=== PATIENT | female | born 1995 | race Caucasian/White ===

== ENCOUNTER 2017-08-13 17:04 | Emergency (ER) | payer MEDICAID ==
[~2017-08-13] VITALS: Ht 149.9 cm; Wt 73.0 kg
[~2017-08-13 17:04] MED LIST: ARIP5TAB4 PO; PANT-47 PO; VENL150C2 PO; VENL75CA55 PO
[2017-08-13 17:42] LABS: BASOPHILS % (AUTO) 0.1 % (0-1); EOSINOPHILS # (AUTO) 0.1 X10'3 (0-0.9); EOSINOPHILS % (AUTO) 1.2 % (0-6); HEMATOCRIT 41.8 % (35.0-45.0); HEMOGLOBIN 14.6 g/dl (12.0-16.0); LYMPHOCYTES # (AUTO) 2.5 X10'3 (1.1-4.8); LYMPHOCYTES % (AUTO) 20.8 % (21-51); MEAN CORPUSCULAR HEMOGLOBIN 29.5 PG (27.0-31.0); MEAN CORPUSCULAR HGB CONC 35.1 % (33.0-36.5); MEAN CORPUSCULAR VOLUME 84.3 FL (78-98); MEAN PLATELET VOLUME 7.4 FL (7.4-10.4); MONOCYTES # (AUTO) 0.4 X10'3 (0-0.9); MONOCYTES % (AUTO) 3.7 % (2-12); NEUTROPHILS # (AUTO) 8.8 X10'3 (1.8-7.7); NEUTROPHILS % (AUTO) 74.2 % (42-75); PLATELET COUNT 322 X10'3 (140-440); RED BLOOD COUNT 4.96 X10'6 (4.20-5.60); RED CELL DISTRIBUTION WIDTH 14.1 % (11.5-14.5); WHITE BLOOD COUNT 11.9 X10'3 (4.5-11.0)
[2017-08-13 17:48] LABS: URINE HCG NEGATIVE (NEG)
[2017-08-13 17:51] LABS: CLARITY,URINE CLOUDY (Clear); COLOR,URINE YELLOW (Yellow); GLUCOSE, URINE NEGATIVE (Neg); KETONES,URINE NEGATIVE (Neg); LEUKOCYTE ESTERASE ,URINE SMALL (Neg); NITRITES, URINE NEGATIVE (Neg); OCCULT BLOOD,URINE NEGATIVE (Neg); PROTEIN,URINE NEGATIVE (Neg)
[2017-08-13 17:53] LABS: UA COLLECTION TYPE CLN CATCH MIDSTREAM
[2017-08-13 18:03] LABS: BACTERIA,URINE 1+ /HPF (Neg); CAL OXALATE CRYSTALS FEW /HPF (NEGATIVE); MUCUS STRANDS MANY /LPF (Neg); RBC,URINE 0-2 /HPF (0-2); SQUAMOUS EPITHELIAL CELL,UR MANY /LPF (FEW); URINE AMPHETAMINE SCREEN NEGATIVE (Neg); URINE BARBITUATE SCREEN NEGATIVE (Neg); URINE BENZODIAZEPINES SCREEN NEGATIVE (Neg); URINE CANNABINOID SCREEN NEGATIVE (Neg); URINE COCAINE SCREEN NEGATIVE (Neg); URINE METHADONE SCREEN NEGATIVE (Neg); URINE OPIATE SCREEN NEGATIVE (Neg); URINE PHENCYCLIDINE SCREEN NEGATIVE (Neg); WBC,URINE 0-4 /HPF (0-4)
[2017-08-13 18:09] LABS: ALANINE AMINOTRANSFERASE 26 U/L (12-78); ALBUMIN 3.9 G/DL (3.4-5.0); ALKALINE PHOSPHATASE 89 IU/L (20-180); ANION GAP 13 (8-16); ASPARTATE AMINO TRANSFERASE 17 U/L (10-37); BILIRUBIN,TOTAL 0.4 MG/DL (0.1-1.0); BLOOD UREA NITROGEN 5 MG/DL (7-18); BUN/CREATININE RATIO 5.6 (6.6-38.0); CALCIUM 8.8 MG/DL (8.5-10.1); CHLORIDE 107 MMOL/L (99-107); CREATININE 0.89 MG/DL (0.40-0.90); ETHANOL < 0.010 GM/DL (0.0-0.010); GLUCOSE 112 MG/DL (70-104); POTASSIUM 3.7 MMOL/L (3.5-5.1); SODIUM 144 MMOL/L (135-145); TOTAL CARBON DIOXIDE 24.1 MMOL/L (24-32); TOTAL PROTEIN 7.9 G/DL (6.4-8.2); eGFR 81 ML/MIN
[2017-08-14] MEDS ORDERED: GABA-534 PO (11:18)
[2017-08-14] MEDS ORDERED: TEN1T CORPAK (11:43)
[2017-08-14] MEDS ORDERED: ARIP10TA15 PO (11:43)
[2017-08-14 13:35] VITALS: BP 104/64
== END 2017-08-14 13:54 ==
LOC: ER 17:04
DX: F32.9 Major depressive disorder, single episode, unspecified (principal); R45.851 Suicidal ideations; J45.909 Unspecified asthma, uncomplicated; Z88.6 Allergy status to analgesic agent; Z79.899 Other long term (current) drug therapy
CPT/HCPCS: 36415; 80053; 80305; 80320; 81001; 81025; 84443; 85025; 99285

== ENCOUNTER 2017-11-02 21:02 | Emergency (ER) | payer MEDICAID ==
[~2017-11-02] VITALS: Ht 175.3 cm; Wt 72.2 kg
[~2017-11-02 21:02] MED LIST changes: +ARIP10TA15 PO; -ARIP5TAB4 PO; +GABA-534 PO; -PANT-47 PO; +TEN1T CORPAK
[2017-11-02 21:07] VITALS: BP 138/74
[2017-11-02 21:47] LABS: COLOR,URINE YELLOW (Yellow); GLUCOSE, URINE NEGATIVE (Neg); KETONES,URINE NEGATIVE (Neg); LEUKOCYTE ESTERASE ,URINE MODERATE (Neg); NITRITES, URINE NEGATIVE (Neg); OCCULT BLOOD,URINE TRACE-LYSED (Neg); PH,URINE 6.5 (4.8-8.0); PROTEIN,URINE NEGATIVE (Neg); UROBILINOGEN,URINE 0.2 E.U/dL (0.2-1.0)
[2017-11-02 21:48] LABS: URINE HCG NEGATIVE (NEG)
[2017-11-02 21:54] LABS: URINE AMPHETAMINE SCREEN NEGATIVE (Neg); URINE BARBITUATE SCREEN NEGATIVE (Neg); URINE BENZODIAZEPINES SCREEN NEGATIVE (Neg); URINE CANNABINOID SCREEN NEGATIVE (Neg); URINE COCAINE SCREEN NEGATIVE (Neg); URINE METHADONE SCREEN NEGATIVE (Neg); URINE OPIATE SCREEN NEGATIVE (Neg); URINE PHENCYCLIDINE SCREEN NEGATIVE (Neg)
[2017-11-02 21:56] LABS: UA COLLECTION TYPE CLN CATCH MIDSTREAM
[2017-11-02 21:57] LABS: BACTERIA,URINE FEW /HPF (Neg); CLARITY,URINE SLIGHTLY CLOUDY (Clear); RBC,URINE 0-2 /HPF (0-2); SQUAMOUS EPITHELIAL CELL,UR FEW /LPF (FEW); WBC,URINE 20-30 /HPF (0-4)
[2017-11-02 21:58] LABS: YEAST FEW /HPF (NEGATIVE)
[2017-11-02] MEDS ORDERED: LORazepam 1 MG tablet PO ONE (23:20)
[2017-11-02] MEDS ORDERED: acetaminophen 325mg tablet PO ONE (23:20)
== END 2017-11-03 00:17 | disposition home or self-care (01) ==
LOC: ER 21:03
DX: F41.9 Anxiety disorder, unspecified (principal); Z88.6 Allergy status to analgesic agent
CPT/HCPCS: 80305; 81001; 81025; 87088; 93005; 99285

== ENCOUNTER 2017-11-07 01:42 | Emergency (ER) | payer MEDICAID ==
[~2017-11-07] VITALS: Ht 157.5 cm; Wt 76.2 kg
[2017-11-07 01:56] VITALS: BP 140/96
== END 2017-11-07 02:25 | disposition home or self-care (01) ==
LOC: ER 01:43
DX: F41.9 Anxiety disorder, unspecified (principal); J45.909 Unspecified asthma, uncomplicated; Z88.6 Allergy status to analgesic agent; Z79.899 Other long term (current) drug therapy
CPT/HCPCS: 99284

== ENCOUNTER 2017-11-25 21:55 | Emergency (ER) | payer MEDICAID ==
[~2017-11-25] VITALS: Ht 149.9 cm; Wt 76.2 kg
[2017-11-25 22:56] LABS: BASOPHILS # (AUTO) 0.1 X10'3 (0-0.2); BASOPHILS % (AUTO) 0.5 % (0-1); EOSINOPHILS # (AUTO) 0.1 X10'3 (0-0.9); HEMATOCRIT 42.6 % (35.0-45.0); HEMOGLOBIN 14.7 g/dl (12.0-16.0); LYMPHOCYTES # (AUTO) 4.1 X10'3 (1.1-4.8); LYMPHOCYTES % (AUTO) 36.4 % (21-51); MEAN CORPUSCULAR HEMOGLOBIN 29.4 PG (27.0-31.0); MEAN CORPUSCULAR HGB CONC 34.6 % (33.0-36.5); MONOCYTES # (AUTO) 0.6 X10'3 (0-0.9); MONOCYTES % (AUTO) 5.6 % (2-12); NEUTROPHILS # (AUTO) 6.4 X10'3 (1.8-7.7); NEUTROPHILS % (AUTO) 56.5 % (42-75); PLATELET COUNT 323 X10'3 (140-440); RED BLOOD COUNT 5.01 X10'6 (4.20-5.60); RED CELL DISTRIBUTION WIDTH 14.6 % (11.5-14.5); WHITE BLOOD COUNT 11.2 X10'3 (4.5-11.0)
[2017-11-25 23:02] LABS: INR 0.9 INR; PROTHROMBIN TIME 9.4 SECONDS (9.0-12.0)
[2017-11-25 23:08] LABS: ALANINE AMINOTRANSFERASE 35 U/L (12-78); ALBUMIN 3.6 G/DL (3.4-5.0); ALBUMIN/GLOBULIN RATIO 0.9 (1.1-1.5); ALKALINE PHOSPHATASE 101 IU/L (46-116); AMYLASE 49 U/L (25-115); ANION GAP 12 (8-16); ASPARTATE AMINO TRANSFERASE 16 U/L (10-37); BILIRUBIN,TOTAL 0.5 MG/DL (0.1-1.0); BLOOD UREA NITROGEN 3 MG/DL (7-18); BUN/CREATININE RATIO 3.6 (6.6-38.0); CALCIUM 8.8 MG/DL (8.5-10.1); CHLORIDE 109 MMOL/L (99-107); CREATININE 0.84 MG/DL (0.40-0.90); GLUCOSE 153 MG/DL (70-104); LIPASE 163 U/L (73-393); POTASSIUM 3.6 MMOL/L (3.5-5.1); SODIUM 143 MMOL/L (135-145); TOTAL CARBON DIOXIDE 22.5 MMOL/L (24-32); TOTAL PROTEIN 7.6 G/DL (6.4-8.2); eGFR 86 ML/MIN
[2017-11-25 23:10] LABS: CLARITY,URINE CLEAR (Clear); COLOR,URINE YELLOW (Yellow); GLUCOSE, URINE NEGATIVE (Neg); KETONES,URINE NEGATIVE (Neg); LEUKOCYTE ESTERASE ,URINE TRACE (Neg); NITRITES, URINE NEGATIVE (Neg); OCCULT BLOOD,URINE NEGATIVE (Neg); PROTEIN,URINE NEGATIVE (Neg)
[2017-11-25 23:12] LABS: UA COLLECTION TYPE CLN CATCH MIDSTREAM; URINE HCG NEGATIVE (NEG)
[2017-11-25 23:15] LABS: RBC,URINE NONE SEEN /HPF (0-2); WBC,URINE 0-4 /HPF (0-4)
[2017-11-25 23:16] LABS: BACTERIA,URINE NONE SEEN /HPF (Neg); SQUAMOUS EPITHELIAL CELL,UR NONE SEEN /LPF (FEW)
[2017-11-25] MEDS ORDERED: morphine 4 MG/ML inj SYRINge IM ONE (23:30)
[2017-11-25] MEDS ORDERED: HYDROcodone/acetaminophen 5mg/325mg tablet PO ONE (23:30)
[2017-11-25] MEDS ORDERED: ondansetron 4mg rapidly disintigrating tab PO ONE (23:30)
[2017-11-26 00:08] VITALS: BP 119/45
== END 2017-11-26 00:17 | disposition home or self-care (01) ==
LOC: ER 21:56
DX: R10.11 Right upper quadrant pain (principal); J45.909 Unspecified asthma, uncomplicated; Z88.6 Allergy status to analgesic agent; Z79.899 Other long term (current) drug therapy
CPT/HCPCS: 36415; 80053; 81001; 81025; 82150; 83690; 85025; 85610; 87088; 96372; 99284; J2270

== ENCOUNTER 2017-12-01 19:44 | Emergency (ER) | payer MEDICAID ==
[~2017-12-01] VITALS: Ht 149.9 cm; Wt 77.0 kg
[2017-12-01] MEDS ORDERED: dicyclomine 10 MG capsule PO ONE (21:45)
[2017-12-01] MEDS ORDERED: famotidine/PF 10 mg/ml inj IV ONE (21:45)
[2017-12-01] MEDS ORDERED: morphine 4 MG/ML inj SYRINge IV ONE (21:45)
[2017-12-01] MEDS ORDERED: normal saline 1000ML IV soln IVB ONE (21:45)
[2017-12-01] MEDS ORDERED: ondansetron/PF 4mg/2ml inj IV ONE (21:45)
[2017-12-01 22:03] LABS: CLARITY,URINE CLEAR (Clear); COLOR,URINE STRAW (Yellow); GLUCOSE, URINE 100 mg/dl (Neg); KETONES,URINE NEGATIVE (Neg); LEUKOCYTE ESTERASE ,URINE SMALL (Neg); NITRITES, URINE NEGATIVE (Neg); OCCULT BLOOD,URINE NEGATIVE (Neg); PROTEIN,URINE NEGATIVE (Neg); UA COLLECTION TYPE CLN CATCH MIDSTREAM; URINE HCG NEGATIVE (NEG); UROBILINOGEN,URINE 0.2 E.U/dL (0.2-1.0)
[2017-12-01 22:12] LABS: EOSINOPHILS # (AUTO) 0.1 X10'3 (0-0.9)
[2017-12-01] MEDS ORDERED: iohexol 300mg/ml 100ml inj. ONE (22:14)
[2017-12-01 22:18] LABS: TOTAL CARBON DIOXIDE 25.3 MMOL/L (24-32)
[2017-12-01 22:26] LABS: BACTERIA,URINE 1+ /HPF (Neg); RBC,URINE 0-2 /HPF (0-2); SQUAMOUS EPITHELIAL CELL,UR FEW /LPF (FEW); WBC,URINE 0-4 /HPF (0-4)
[2017-12-01 22:30] LABS: BASOPHILS % (AUTO) 0.3 % (0-1); EOSINOPHILS % (AUTO) 0.8 % (0-6); HEMATOCRIT 43.9 % (35.0-45.0); HEMOGLOBIN 15.4 g/dl (12.0-16.0); LYMPHOCYTES # (AUTO) 3.2 X10'3 (1.1-4.8); MEAN CORPUSCULAR HEMOGLOBIN 29.8 PG (27.0-31.0); MEAN CORPUSCULAR HGB CONC 35.2 % (33.0-36.5); MEAN CORPUSCULAR VOLUME 84.9 FL (78-98); MEAN PLATELET VOLUME 7.9 FL (7.4-10.4); MONOCYTES # (AUTO) 0.5 X10'3 (0-0.9); MONOCYTES % (AUTO) 5.2 % (2-12); NEUTROPHILS # (AUTO) 5.6 X10'3 (1.8-7.7); NEUTROPHILS % (AUTO) 59.7 % (42-75); PLATELET COUNT 310 X10'3 (140-440); RED BLOOD COUNT 5.17 X10'6 (4.20-5.60); RED CELL DISTRIBUTION WIDTH 14.3 % (11.5-14.5); WHITE BLOOD COUNT 9.4 X10'3 (4.5-11.0)
[2017-12-01 22:51] LABS: ALANINE AMINOTRANSFERASE 32 U/L (12-78); ALBUMIN 3.8 G/DL (3.4-5.0); ALBUMIN/GLOBULIN RATIO 0.9 (1.1-1.5); ALKALINE PHOSPHATASE 118 IU/L (46-116); ANION GAP 10 (8-16); ASPARTATE AMINO TRANSFERASE 18 U/L (10-37); BILIRUBIN,TOTAL 0.4 MG/DL (0.1-1.0); BLOOD UREA NITROGEN 4 MG/DL (7-18); CALCIUM 9.1 MG/DL (8.5-10.1); CHLORIDE 109 MMOL/L (99-107); CREATINE KINASE 151 U/L (26-192); GLUCOSE 158 MG/DL (70-104); LIPASE 190 U/L (73-393); MAGNESIUM 2.4 MG/DL (1.5-2.4); SODIUM 144 MMOL/L (135-145); TOTAL PROTEIN 8.1 G/DL (6.4-8.2); eGFR > 90 ML/MIN
[2017-12-01 23:23] LABS: CHOL/HDL RATIO 7.5 (0.00-4.99); CHOLESTEROL 172 MG/DL (0-200); HDL CHOLESTEROL 23 MG/DL (35-60); LDL CHOLESTEROL 117 MG/DL (50-100); TRIGLYCERIDES 502 MG/DL (20-135)
[2017-12-02] MEDS ORDERED: HYDR-569 PO (00:56)
[2017-12-02 01:16] VITALS: BP 127/87
== END 2017-12-02 01:19 | disposition home or self-care (01) ==
LOC: ER 19:45
DX: E78.1 Pure hyperglyceridemia (principal); R10.13 Epigastric pain; J45.909 Unspecified asthma, uncomplicated; Z88.6 Allergy status to analgesic agent; Z79.899 Other long term (current) drug therapy
CPT/HCPCS: 36415; 74177; 80053; 80061; 81001; 81025; 82140; 82550; 83690; 83735; 84484; 85025; 87088; 96374; 96375; 99285; J2270; J2405; J3490; J7030; Q9967

== ENCOUNTER 2017-12-03 01:40 | Emergency (ER) | payer MEDICAID ==
[~2017-12-03 01:40] MED LIST changes: +HYDR-569 PO
[2017-12-03] MEDS ORDERED: ondansetron/PF 4mg/2ml inj IV ONE (03:40)
[2017-12-03] MEDS ORDERED: famotidine/PF 10 mg/ml inj IV ONE (03:40)
[2017-12-03] MEDS ORDERED: morphine 4 MG/ML inj SYRINge IV ONE (03:40)
[2017-12-03 04:44] VITALS: BP 129/77
== END 2017-12-03 05:05 | disposition home or self-care (01) ==
LOC: ER 01:41
DX: R10.13 Epigastric pain (principal); J45.909 Unspecified asthma, uncomplicated; Z88.6 Allergy status to analgesic agent; Z79.899 Other long term (current) drug therapy
CPT/HCPCS: 96374; 96375; 99284; J2270; J2405; J3490

== ENCOUNTER 2017-12-11 22:26 | Emergency (ER) | payer MEDICAID ==
[~2017-12-11] VITALS: Ht 149.9 cm; Wt 75.0 kg
[2017-12-11 22:43] VITALS: BP 123/82
[2017-12-11] MEDS ORDERED: dicyclomine 10mg/ml 2ml ampule IM ONE (23:50)
[2017-12-11] MEDS ORDERED: DICY10CA88 PO (23:52)
== END 2017-12-12 00:14 | disposition home or self-care (01) ==
LOC: ER 22:27
DX: R10.13 Epigastric pain (principal); J45.909 Unspecified asthma, uncomplicated; Z88.6 Allergy status to analgesic agent; Z79.899 Other long term (current) drug therapy
CPT/HCPCS: 96372; 99283; J0500

== ENCOUNTER 2017-12-16 19:33 | Emergency (ER) | payer MEDICAID ==
[~2017-12-16] VITALS: Ht 149.9 cm; Wt 73.8 kg
[~2017-12-16 19:33] MED LIST changes: +DICY10CA88 PO
[2017-12-16 19:43] VITALS: BP 133/89
== END 2017-12-16 21:57 | disposition left against medical advice (07) ==
LOC: ER 19:33
DX: R10.9 Unspecified abdominal pain (principal); Z53.21 Procedure and treatment not carried out due to patient leaving prior to being seen by health care provider

== ENCOUNTER 2017-12-16 22:03 | Emergency (ER) | payer MEDICAID ==
[~2017-12-16] VITALS: Ht 149.9 cm; Wt 77.7 kg
[2017-12-16 22:16] VITALS: BP 135/88
[2017-12-17] MEDS ORDERED: normal saline 1000ML IV soln IVB ONE (00:05)
[2017-12-17 00:34] LABS: BASOPHILS % (AUTO) 0.3 % (0-1); EOSINOPHILS # (AUTO) 0.3 X10'3 (0-0.9); EOSINOPHILS % (AUTO) 2.5 % (0-6); HEMATOCRIT 40.7 % (35.0-45.0); HEMOGLOBIN 13.5 g/dl (12.0-16.0); LYMPHOCYTES % (AUTO) 25.6 % (21-51); MEAN CORPUSCULAR HEMOGLOBIN 28.4 PG (27.0-31.0); MEAN PLATELET VOLUME 7.8 FL (7.4-10.4); MONOCYTES # (AUTO) 0.3 X10'3 (0-0.9); MONOCYTES % (AUTO) 2.9 % (2-12); NEUTROPHILS % (AUTO) 68.7 % (42-75); PLATELET COUNT 327 X10'3 (140-440); RED BLOOD COUNT 4.74 X10'6 (4.20-5.60); RED CELL DISTRIBUTION WIDTH 13.6 % (11.5-14.5); WHITE BLOOD COUNT 11.6 X10'3 (4.5-11.0)
[2017-12-17 00:42] LABS: ALANINE AMINOTRANSFERASE 21 U/L (12-78); ALBUMIN 3.5 G/DL (3.4-5.0); ALBUMIN/GLOBULIN RATIO 0.9 (1.1-1.5); ALKALINE PHOSPHATASE 90 IU/L (46-116); ANION GAP 9 (8-16); ASPARTATE AMINO TRANSFERASE 10 U/L (10-37); BILIRUBIN,TOTAL 0.5 MG/DL (0.1-1.0); BLOOD UREA NITROGEN 8 MG/DL (7-18); BUN/CREATININE RATIO 9.1 (6.6-38.0); CALCIUM 9.3 MG/DL (8.5-10.1); CHLORIDE 108 MMOL/L (99-107); CREATININE 0.88 MG/DL (0.40-0.90); GLUCOSE 112 MG/DL (70-104); LIPASE 174 U/L (73-393); POTASSIUM 3.6 MMOL/L (3.5-5.1); SODIUM 145 MMOL/L (135-145); TOTAL CARBON DIOXIDE 27.6 MMOL/L (24-32); TOTAL PROTEIN 7.6 G/DL (6.4-8.2); eGFR 81 ML/MIN
[2017-12-17 01:19] LABS: CLARITY,URINE CLEAR (Clear); COLOR,URINE STRAW (Yellow); GLUCOSE, URINE NEGATIVE (Neg); KETONES,URINE NEGATIVE (Neg); LEUKOCYTE ESTERASE ,URINE NEGATIVE (Neg); NITRITES, URINE NEGATIVE (Neg); OCCULT BLOOD,URINE NEGATIVE (Neg); PROTEIN,URINE NEGATIVE (Neg); UROBILINOGEN,URINE 0.2 E.U/dL (0.2-1.0)
[2017-12-17 01:20] LABS: UA COLLECTION TYPE CLN CATCH MIDSTREAM
[2017-12-17] MEDS ORDERED: acetaminophen 325mg tablet PO ONE (01:35)
== END 2017-12-17 01:51 | disposition home or self-care (01) ==
LOC: ER 22:03
DX: G89.29 Other chronic pain (principal); R10.13 Epigastric pain; J45.909 Unspecified asthma, uncomplicated; Z88.6 Allergy status to analgesic agent; Z79.899 Other long term (current) drug therapy
CPT/HCPCS: 36415; 80053; 81003; 83690; 85025; 99284; J7030

== ENCOUNTER 2017-12-18 19:41 | Emergency (ER) | payer MEDICAID ==
[~2017-12-18] VITALS: Ht 502.6 cm; Wt 76.0 kg
[2017-12-18 19:44] VITALS: BP 129/98
[2017-12-18] MEDS ORDERED: benztropine 1mg tablet PO ONE (20:45)
[2017-12-18] MEDS ORDERED: LORazepam 0.5 MG tablet PO PRN (20:45)
== END 2017-12-18 21:13 | disposition home or self-care (01) ==
LOC: ER 19:41
DX: G25.3 Myoclonus (principal); J45.909 Unspecified asthma, uncomplicated; G89.29 Other chronic pain; Z88.8 Allergy status to other drugs, medicaments and biological substances; Z79.899 Other long term (current) drug therapy
CPT/HCPCS: 99283

== ENCOUNTER 2018-02-21 19:44 | Emergency (ER) | payer MEDICAID ==
[~2018-02-21] VITALS: Ht 149.9 cm; Wt 72.7 kg
[~2018-02-21 19:44] MED LIST changes: +BISA-155 PO; -DICY10CA88 PO
[2018-02-21 19:54] VITALS: BP 125/87
[2018-02-21 20:21] LABS: CLARITY,URINE CLEAR (Clear); COLOR,URINE YELLOW (Yellow); GLUCOSE, URINE NEGATIVE (Neg); KETONES,URINE NEGATIVE (Neg); LEUKOCYTE ESTERASE ,URINE TRACE (Neg); NITRITES, URINE NEGATIVE (Neg); OCCULT BLOOD,URINE NEGATIVE (Neg); PROTEIN,URINE NEGATIVE (Neg); UROBILINOGEN,URINE 0.2 E.U/dL (0.2-1.0)
[2018-02-21 20:31] LABS: UA COLLECTION TYPE CLN CATCH MIDSTREAM
[2018-02-21 20:32] LABS: BACTERIA,URINE FEW /HPF (Neg); RBC,URINE NONE SEEN /HPF (0-2); SQUAMOUS EPITHELIAL CELL,UR FEW /LPF (FEW); WBC,URINE 0-4 /HPF (0-4)
[2018-02-21] MEDS ORDERED: mag hydrox/Alum hydrox/simeth 30ml oral suspension PO ONE (21:10)
[2018-02-21] MEDS ORDERED: LIDOcaine Viscous 15ml cup PO ONE (21:10)
[2018-02-21] MEDS ORDERED: dicyclomine 10mg/ml 2ml ampule IM ONE (21:10)
== END 2018-02-21 21:59 | disposition home or self-care (01) ==
LOC: ER 19:45
DX: R10.9 Unspecified abdominal pain (principal); K59.00 Constipation, unspecified; J45.909 Unspecified asthma, uncomplicated; F29 Unspecified psychosis not due to a substance or known physiological condition; F41.9 Anxiety disorder, unspecified; F32.9 Major depressive disorder, single episode, unspecified; Z88.6 Allergy status to analgesic agent; Z88.8 Allergy status to other drugs, medicaments and biological substances
CPT/HCPCS: 81001; 87077; 87088; 87186; 96372; 99284; J0500

== ENCOUNTER 2018-02-26 21:48 | Emergency (ER) | payer MEDICAID ==
[~2018-02-26] VITALS: Ht 149.9 cm; Wt 72.7 kg
[2018-02-26] MEDS ORDERED: mag hydrox/Alum hydrox/simeth 30ml oral suspension PO ONE (23:15)
[2018-02-26] MEDS ORDERED: LIDOcaine Viscous 15ml cup MM PRN (23:15)
[2018-02-26] MEDS ORDERED: dicyclomine 10mg/ml 2ml ampule IM ONE (23:15)
[2018-02-27 00:56] VITALS: BP 122/71
== END 2018-02-27 00:25 | disposition home or self-care (01) ==
LOC: ER 21:49
DX: R10.9 Unspecified abdominal pain (principal); J45.909 Unspecified asthma, uncomplicated; G89.29 Other chronic pain; Z88.6 Allergy status to analgesic agent; Z79.899 Other long term (current) drug therapy
CPT/HCPCS: 96372; 99283; J0500

== ENCOUNTER 2018-03-01 19:54 | Emergency (ER) | payer MEDICAID ==
[~2018-03-01] VITALS: Ht 149.9 cm; Wt 72.7 kg
[2018-03-01 22:30] VITALS: BP 118/79
== END 2018-03-01 22:33 | disposition home or self-care (01) ==
LOC: ER 19:54
DX: M79.621 Pain in right upper arm (principal); J45.909 Unspecified asthma, uncomplicated; G89.29 Other chronic pain; Z88.6 Allergy status to analgesic agent; Z79.899 Other long term (current) drug therapy
CPT/HCPCS: 99281

== ENCOUNTER 2018-03-04 21:30 | Emergency (ER) | payer MEDICAID ==
[~2018-03-04] VITALS: Ht 149.9 cm; Wt 79.3 kg
[2018-03-05 00:40] VITALS: BP 121/72
== END 2018-03-05 00:44 | disposition home or self-care (01) ==
LOC: ER 21:30
DX: R10.9 Unspecified abdominal pain (principal); J45.909 Unspecified asthma, uncomplicated; G89.29 Other chronic pain; Z88.6 Allergy status to analgesic agent; Z79.899 Other long term (current) drug therapy
CPT/HCPCS: 99284

== ENCOUNTER → 2018-03-13 | Emergency (ER) | payer MEDICAID ==
[~2018-03-13] VITALS: Ht 149.9 cm; Wt 72.0 kg
[2018-03-13 17:14] VITALS: BP 110/74
== END | disposition home or self-care (01) ==
LOC: ER 16:11
DX: M25.531 Pain in right wrist (principal); J45.909 Unspecified asthma, uncomplicated; G89.29 Other chronic pain; Z88.6 Allergy status to analgesic agent; Z79.899 Other long term (current) drug therapy; W22.01XA Walked into wall, initial encounter; Y93.89 Activity, other specified; Y92.89 Other specified places as the place of occurrence of the external cause; Y99.9 Unspecified external cause status
CPT/HCPCS: 73110; 73130; 99284

== ENCOUNTER 2018-05-05 20:55 | Emergency (ER) | payer MEDICAID ==
[~2018-05-05] VITALS: Ht 149.9 cm; Wt 81.7 kg
[~2018-05-05 20:55] MED LIST changes: +HYDR-4383 PO; -HYDR-569 PO
[2018-05-05 21:03] VITALS: BP 125/77
[2018-05-05 21:17] LABS: URINE HCG NEGATIVE (NEG)
[2018-05-05 21:22] LABS: CLARITY,URINE CLEAR (Clear); COLOR,URINE YELLOW (Yellow); GLUCOSE, URINE NEGATIVE (Neg); KETONES,URINE NEGATIVE (Neg); LEUKOCYTE ESTERASE ,URINE TRACE (Neg); NITRITES, URINE NEGATIVE (Neg); OCCULT BLOOD,URINE NEGATIVE (Neg); PH,URINE 6.5 (4.8-8.0); PROTEIN,URINE NEGATIVE (Neg); UROBILINOGEN,URINE 0.2 E.U/dL (0.2-1.0)
[2018-05-05 21:28] LABS: UA COLLECTION TYPE CLN CATCH MIDSTREAM
[2018-05-05 21:30] LABS: BACTERIA,URINE FEW /HPF (Neg); RBC,URINE NONE SEEN /HPF (0-2); SQUAMOUS EPITHELIAL CELL,UR MODERATE /LPF (FEW); WBC,URINE 0-4 /HPF (0-4)
== END 2018-05-05 21:44 | disposition home or self-care (01) ==
LOC: ER 20:56
DX: G89.29 Other chronic pain (principal); R10.10 Upper abdominal pain, unspecified; R10.84 Generalized abdominal pain; J45.909 Unspecified asthma, uncomplicated; Z88.6 Allergy status to analgesic agent; Z79.899 Other long term (current) drug therapy
CPT/HCPCS: 81001; 81025; 87088; 99284

== ENCOUNTER 2018-05-08 20:56 | Emergency (ER) | payer MEDICAID ==
[~2018-05-08] VITALS: Ht 149.9 cm; Wt 81.8 kg
[2018-05-08 21:36] VITALS: BP 124/79
[2018-05-08 21:56] LABS: URINE HCG NEGATIVE (NEG)
[2018-05-08 22:02] LABS: CLARITY,URINE SLIGHTLY CLOUDY (Clear); COLOR,URINE YELLOW (Yellow); GLUCOSE, URINE NEGATIVE (Neg); KETONES,URINE TRACE mg/dl (Neg); LEUKOCYTE ESTERASE ,URINE NEGATIVE (Neg); NITRITES, URINE NEGATIVE (Neg); OCCULT BLOOD,URINE NEGATIVE (Neg); PROTEIN,URINE NEGATIVE (Neg)
[2018-05-08 22:21] LABS: UA COLLECTION TYPE CLN CATCH MIDSTREAM
[2018-05-08 22:22] LABS: MUCUS STRANDS MANY /LPF (Neg); RBC,URINE NONE SEEN /HPF (0-2); SQUAMOUS EPITHELIAL CELL,UR MANY /LPF (FEW); WBC,URINE 0-4 /HPF (0-4)
[2018-05-08 22:23] LABS: BACTERIA,URINE 1+ /HPF (Neg)
[2018-05-08 22:24] LABS: AMORPHOUS PHOSPHATES 3+
[2018-05-08] MEDS ORDERED: dexamethasone 4mg tablet PO ONE (22:40)
== END 2018-05-08 22:49 | disposition home or self-care (01) ==
LOC: ER 21:09
DX: M54.5 Low back pain (principal); J45.909 Unspecified asthma, uncomplicated; G89.29 Other chronic pain; Z88.8 Allergy status to other drugs, medicaments and biological substances; Z79.899 Other long term (current) drug therapy
CPT/HCPCS: 81001; 81025; 99284; J8540

== ENCOUNTER 2018-05-26 16:16 | Emergency (ER) | payer MEDICAID ==
[~2018-05-26] VITALS: Ht 149.9 cm; Wt 83.6 kg
[2018-05-26 16:23] VITALS: BP 138/87
== END 2018-05-26 18:26 | disposition home or self-care (01) ==
LOC: ER 16:16
DX: S60.211A Contusion of right wrist, initial encounter (principal); M25.431 Effusion, right wrist; J45.909 Unspecified asthma, uncomplicated; G89.29 Other chronic pain; Z88.6 Allergy status to analgesic agent; Z79.899 Other long term (current) drug therapy; W22.03XA Walked into furniture, initial encounter; Y93.89 Activity, other specified; Y92.89 Other specified places as the place of occurrence of the external cause; Y99.9 Unspecified external cause status
CPT/HCPCS: 29125; 73110; 99283

== ENCOUNTER 2018-05-31 11:03 | Emergency (ER) | payer MEDICAID ==
[~2018-05-31] VITALS: Ht 149.9 cm; Wt 81.8 kg
[2018-05-31 11:55] VITALS: BP 122/68
== END 2018-05-31 11:56 | disposition home or self-care (01) ==
LOC: ER 11:03
DX: M79.641 Pain in right hand (principal); G89.29 Other chronic pain; J45.909 Unspecified asthma, uncomplicated; Z88.6 Allergy status to analgesic agent; Z79.899 Other long term (current) drug therapy
CPT/HCPCS: 29125; 99283

== ENCOUNTER 2018-11-24 19:08 | Emergency (ER) | payer OTHER, MEDICAID ==
[~2018-11-24] VITALS: Ht 149.9 cm; Wt 90.9 kg
[~2018-11-24 19:08] MED LIST changes: +PANT-47 PO
--- NOTE | 2018-11-24 19:26 | NUR ---
Contacted [employer] to report incident, will have Officer respond.
--- NOTE | 2018-11-24 19:42 | NUR ---
SCSO Mckenna called and will be enroute to interview patient.
--- NOTE | 2018-11-24 20:50 | NUR ---
Officer responded and spoke with patient. ISAEL daugherty authorized. ISAEL PHELPS contacted and enroute. [facility] advocate enroute.
--- NOTE | 2018-11-24 21:30 | NUR ---
Arrived set up sart room for exam, missing information for sart kit authorization.
--- NOTE | 2018-11-24 21:56 | NUR ---
called [facility] dispatch awaiting call back from deputy with authorization information.
[2018-11-24 23:28] LABS: URINE HCG NEGATIVE (NEG)
[2018-11-24 23:32] VITALS: BP 133/85
--- NOTE | 2018-11-24 23:46 | NUR ---
sti and prophylaxis administered per orders
== END 2018-11-24 23:54 | disposition home or self-care (01) ==
LOC: ER 19:09
DX: T74.21XA Adult sexual abuse, confirmed, initial encounter (principal); J45.909 Unspecified asthma, uncomplicated; G89.29 Other chronic pain; Z79.899 Other long term (current) drug therapy; Z88.6 Allergy status to analgesic agent; Y92.89 Other specified places as the place of occurrence of the external cause
CPT/HCPCS: 81025; 99284

== ENCOUNTER 2018-11-29 00:41 | Emergency (ER) | payer MEDICAID, OTHER ==
[~2018-11-29] VITALS: Ht 149.9 cm; Wt 90.9 kg
[2018-11-29 01:34] LABS: BASOPHILS # (AUTO) 0.1 X10'3 (0-0.2); BASOPHILS % (AUTO) 0.9 % (0-1); EOSINOPHILS # (AUTO) 0.1 X10'3 (0-0.9); EOSINOPHILS % (AUTO) 0.5 % (0-6); HEMATOCRIT 38.1 % (35.0-45.0); HEMOGLOBIN 12.7 g/dl (12.0-16.0); LYMPHOCYTES % (AUTO) 29.1 % (21-51); MEAN CORPUSCULAR HEMOGLOBIN 29.2 PG (27.0-31.0); MEAN CORPUSCULAR HGB CONC 33.3 g/dL (33.0-36.5); MEAN CORPUSCULAR VOLUME 87.6 FL (78-98); MEAN PLATELET VOLUME 7.3 FL (7.4-10.4); MONOCYTES % (AUTO) 6.8 % (2-12); NEUTROPHILS # (AUTO) 8.7 X10'3 (1.8-7.7); NEUTROPHILS % (AUTO) 62.7 % (42-75); PLATELET COUNT 291 X10'3 (140-440); RED BLOOD COUNT 4.35 X10'6 (4.20-5.60); RED CELL DISTRIBUTION WIDTH 15.4 % (11.5-14.5); WHITE BLOOD COUNT 13.9 X10'3 (4.5-11.0)
[2018-11-29 01:58] LABS: ALANINE AMINOTRANSFERASE 17 U/L (12-78); ALBUMIN 2.8 G/DL (3.4-5.0); ALBUMIN/GLOBULIN RATIO 0.7 (1.1-1.5); ALKALINE PHOSPHATASE 71 IU/L (46-116); ANION GAP 10 (8-16); ASPARTATE AMINO TRANSFERASE 12 U/L (10-37); BILIRUBIN,TOTAL 0.2 MG/DL (0.1-1.0); BLOOD UREA NITROGEN 7 MG/DL (7-18); BUN/CREATININE RATIO 7.4 (6.6-38.0); CALCIUM 8.8 MG/DL (8.5-10.1); CHLORIDE 104 MMOL/L (99-107); CREATININE 0.95 MG/DL (0.40-0.90); GLUCOSE 150 MG/DL (70-104); POTASSIUM 3.4 MMOL/L (3.5-5.1); SODIUM 137 MMOL/L (135-145); TOTAL CARBON DIOXIDE 22.8 MMOL/L (24-32); TOTAL PROTEIN 6.6 G/DL (6.4-8.2); eGFR 74 ML/MIN
[2018-11-29 02:05] LABS: MAGNESIUM 1.6 MG/DL (1.5-2.4)
[2018-11-29] MEDS ORDERED: magnesium oxide 400mg tablet PO ONE ×2 (02:50→04:40)
[2018-11-29] MEDS ORDERED: metoprolol tartrate 1mg/ml inj IV ONE (02:50)
[2018-11-29] MEDS ORDERED: potassium Cl 20 mEq SR tablet PO ONE ×2 (02:50→04:40)
[2018-11-29] MEDS ORDERED: normal saline 1000ML IV soln IVB ONE (02:55)
--- NOTE | 2018-11-29 03:55 | NUR ---
Patient resting comfortably on gurney, just gave meds and 1000mL bolus.
--- NOTE | 2018-11-29 04:20 | NUR ---
Patient gave urine sample
[2018-11-29 04:32] LABS: URINE AMPHETAMINE SCREEN NEGATIVE (Neg); URINE BARBITUATE SCREEN NEGATIVE (Neg); URINE BENZODIAZEPINES SCREEN NEGATIVE (Neg); URINE CANNABINOID SCREEN NEGATIVE (Neg); URINE COCAINE SCREEN NEGATIVE (Neg); URINE METHADONE SCREEN NEGATIVE (Neg); URINE OPIATE SCREEN NEGATIVE (Neg); URINE PHENCYCLIDINE SCREEN NEGATIVE (Neg)
[2018-11-29] MEDS ORDERED: metoprolol tartrate 50mg tablet PO ONE (04:40)
[2018-11-29 04:53] VITALS: BP 131/78
== END 2018-11-29 05:03 | disposition home or self-care (01) ==
LOC: ER 00:42
DX: R00.2 Palpitations (principal); E87.6 Hypokalemia; J45.909 Unspecified asthma, uncomplicated; G89.29 Other chronic pain; Z88.6 Allergy status to analgesic agent; Z79.899 Other long term (current) drug therapy
CPT/HCPCS: 36415; 71045; 80053; 80305; 83735; 83880; 84484; 85025; 93005; 99284; J7030

== ENCOUNTER 2018-12-06 12:27 | Emergency (ER) | payer MEDICAID ==
[~2018-12-06] VITALS: Ht 149.9 cm; Wt 90.0 kg
[2018-12-06 12:47] VITALS: BP 131/90
== END 2018-12-06 13:36 | disposition home or self-care (01) ==
LOC: ER 12:27
DX: S60.222A Contusion of left hand, initial encounter (principal); J45.909 Unspecified asthma, uncomplicated; G89.29 Other chronic pain; Z88.6 Allergy status to analgesic agent; Z79.899 Other long term (current) drug therapy; W22.01XA Walked into wall, initial encounter; Y93.89 Activity, other specified; Y92.89 Other specified places as the place of occurrence of the external cause; Y99.9 Unspecified external cause status
CPT/HCPCS: 73130; 99283

== ENCOUNTER 2018-12-17 12:50 | Day surgery (SDC) | payer MEDICAID ==
[~2018-12-17 12:50] MED LIST changes: +ACET-2119 PO; +AMOX500C2 PO; +ETHY1TAB8 PO; +FLUO10CA28 PO; +LIDOcaine/PRILOcaine 5gm cream TP ONE; +LORA1TAB PO; +METF500T PO; +ONDA4TAB6 PO; +PRAZ5CAP PO; +PROP10TA10 PO; +RISP2TAB3 PO; +silver sulfadiazine cream 50gm TP ONE
--- NOTE | 2018-12-17 14:38 | NUR ---
Patient ambulated independently from [facility] and was admitted to outpatient wound care for physician visit with Omar Membreno MD. Dressing removed, wound cleansed and Emla cream applied per order. New patient assessment completed with review of patient's medical history, allergies, current medications. [id number] - Dr. Membreno at bedside accompanied by RN. Wound assessed, time out performed by MD/RN. Wound debrided as detailed in the physician progress/procedure note. Plan of care discussed with patient. Dressings placed per MD orders. Patient instructed on the signs and symptoms of infection and to call the Wound Center if any occur or to go to the ED if we are closed: Increased pain in wound Increase in drainage from the wound Redness in the skin surrounding the wound Bleeding from the wound Temperature of 101 or greater Patient instructed that the weight of their body puts a large amount of pressure on their wounds. This pressure keeps the new tissue from growing and inhibits new blood vessels from forming. Explained that, if they continue to bear weight on a body part that has a wound, the time it takes to heal the wound increases, the wound may get worse or the wound may not heal at all. Patient verbalized understanding of all discharge instructions and plan of care and ambulated independently out to [facility] in stable condition with no sign or symptom of distress at time of discharge.
== END 2018-12-18 12:50 | disposition home or self-care (01) ==
LOC: WOUND CARE 12:50
PROVIDERS: ATTEND Surgery
PROC: 0HB7XZZ Excision of Abdomen Skin, External Approach (ICD-10-PCS; principal; 2018-12-17)
DX: T21.22XD Burn of second degree of abdominal wall, subsequent encounter (principal); J45.909 Unspecified asthma, uncomplicated; G89.29 Other chronic pain; F41.9 Anxiety disorder, unspecified; F32.9 Major depressive disorder, single episode, unspecified; F20.9 Schizophrenia, unspecified; Z79.899 Other long term (current) drug therapy; X10.2XXA Contact with fats and cooking oils, initial encounter; Y93.89 Activity, other specified; Y92.89 Other specified places as the place of occurrence of the external cause; Y99.8 Other external cause status; T31.0 Burns involving less than 10% of body surface
CPT/HCPCS: 16020; A6223; 97597; A4663; A6213

== ENCOUNTER 2019-05-17 19:54 | Emergency (ER) | payer MEDICAID ==
[~2019-05-17] VITALS: Ht 149.9 cm; Wt 90.0 kg
[~2019-05-17 19:54] MED LIST changes: -AMOX500C2 PO; -BISA-155 PO; -HYDR-4383 PO; -LIDOcaine/PRILOcaine 5gm cream TP ONE; -TEN1T CORPAK; -silver sulfadiazine cream 50gm TP ONE
[2019-05-17 20:32] LABS: BASOPHILS # (AUTO) 0.1 X10'3 (0-0.2); BASOPHILS % (AUTO) 0.8 % (0-1); EOSINOPHILS # (AUTO) 0.1 X10'3 (0-0.9); EOSINOPHILS % (AUTO) 0.7 % (0-6); HEMATOCRIT 45.2 % (35.0-45.0); HEMOGLOBIN 15.3 g/dl (12.0-16.0); LYMPHOCYTES # (AUTO) 4.1 X10'3 (1.1-4.8); LYMPHOCYTES % (AUTO) 34.5 % (21-51); MEAN CORPUSCULAR HEMOGLOBIN 29.3 PG (27.0-31.0); MEAN CORPUSCULAR HGB CONC 33.8 g/dL (33.0-36.5); MEAN CORPUSCULAR VOLUME 86.7 FL (78-98); MEAN PLATELET VOLUME 7.6 FL (7.4-10.4); MONOCYTES # (AUTO) 0.6 X10'3 (0-0.9); MONOCYTES % (AUTO) 4.8 % (2-12); NEUTROPHILS % (AUTO) 59.2 % (42-75); PLATELET COUNT 294 X10'3 (140-440); RED BLOOD COUNT 5.21 X10'6 (4.20-5.60); RED CELL DISTRIBUTION WIDTH 15.1 % (11.5-14.5); WHITE BLOOD COUNT 11.8 X10'3 (4.5-11.0)
[2019-05-17 20:45] LABS: ALANINE AMINOTRANSFERASE 30 U/L (12-78); ALBUMIN 3.8 G/DL (3.4-5.0); ALBUMIN/GLOBULIN RATIO 0.9 (1.1-1.5); ALKALINE PHOSPHATASE 118 IU/L (46-116); ANION GAP 11 (8-16); ASPARTATE AMINO TRANSFERASE 25 U/L (10-37); BILIRUBIN,TOTAL 0.5 MG/DL (0.1-1.0); BLOOD UREA NITROGEN 5 MG/DL (7-18); BUN/CREATININE RATIO 5.3 (6.6-38.0); CALCIUM 9.7 MG/DL (8.5-10.1); CHLORIDE 103 MMOL/L (99-107); CREATININE 0.95 MG/DL (0.40-0.90); GLUCOSE 172 MG/DL (70-104); POTASSIUM 3.8 MMOL/L (3.5-5.1); SODIUM 141 MMOL/L (135-145); TOTAL CARBON DIOXIDE 27.5 MMOL/L (24-32); eGFR 74 ML/MIN
[2019-05-17 22:16] LABS: TROPONIN I < 0.04 NG/ML (0.0-0.05)
[2019-05-17 22:23] LABS: D-DIMER 0.33 MG/L FEU (0-0.50)
[2019-05-17 23:10] VITALS: BP 129/66
== END 2019-05-17 23:11 | disposition home or self-care (01) ==
LOC: ER 19:56
DX: R07.89 Other chest pain (principal); J45.909 Unspecified asthma, uncomplicated; G89.29 Other chronic pain; Z88.6 Allergy status to analgesic agent; Z79.899 Other long term (current) drug therapy
CPT/HCPCS: 36415; 71046; 80053; 84484; 85025; 85379; 93005; 99284

== ENCOUNTER 2019-05-19 16:40 | Emergency (ER) | payer MEDICAID ==
[~2019-05-19] VITALS: Ht 149.9 cm; Wt 88.4 kg
[2019-05-19 17:02] VITALS: BP 123/82
[2019-05-19] MEDS ORDERED: HYDR-4383 PO (18:16)
== END 2019-05-19 18:31 | disposition home or self-care (01) ==
LOC: ER 16:40
DX: S60.211A Contusion of right wrist, initial encounter (principal); J45.909 Unspecified asthma, uncomplicated; G89.29 Other chronic pain; F41.9 Anxiety disorder, unspecified; F32.9 Major depressive disorder, single episode, unspecified; F20.9 Schizophrenia, unspecified; Z88.6 Allergy status to analgesic agent; Z79.84 Long term (current) use of oral hypoglycemic drugs; Z79.899 Other long term (current) drug therapy; W01.0XXA Fall on same level from slipping, tripping and stumbling without subsequent striking against object, initial encounter; Y93.89 Activity, other specified; Y92.89 Other specified places as the place of occurrence of the external cause; Y99.8 Other external cause status
CPT/HCPCS: 29125; 73110; 99283

== ENCOUNTER 2019-08-27 03:42 | Emergency (ER) | payer MEDICAID ==
[~2019-08-27] VITALS: Ht 149.9 cm; Wt 86.4 kg
[~2019-08-27 03:42] MED LIST changes: +HYDR-4383 PO
[2019-08-27 03:47] VITALS: BP 120/75
[2019-08-27] MEDS ORDERED: acetaminophen w/codeine (30MG) #3 tablet PO ONE (04:20)
== END 2019-08-27 05:25 | disposition home or self-care (01) ==
LOC: ER 03:42
DX: S80.01XA Contusion of right knee, initial encounter (principal); J45.909 Unspecified asthma, uncomplicated; G89.29 Other chronic pain; F41.9 Anxiety disorder, unspecified; F32.9 Major depressive disorder, single episode, unspecified; F20.9 Schizophrenia, unspecified; Z88.6 Allergy status to analgesic agent; Z79.84 Long term (current) use of oral hypoglycemic drugs; Z79.899 Other long term (current) drug therapy; W18.39XA Other fall on same level, initial encounter; Y93.89 Activity, other specified; Y92.89 Other specified places as the place of occurrence of the external cause; Y99.8 Other external cause status
CPT/HCPCS: 73564; 99284

== ENCOUNTER 2019-09-01 19:09 | Emergency (ER) | payer MEDICAID ==
[~2019-09-01] VITALS: Ht 149.9 cm; Wt 85.9 kg
[2019-09-01 19:37] LABS: CLARITY,URINE CLEAR (Clear); COLOR,URINE STRAW (Yellow); GLUCOSE, URINE NEGATIVE (Neg); KETONES,URINE NEGATIVE (Neg); LEUKOCYTE ESTERASE ,URINE TRACE (Neg); NITRITES, URINE NEGATIVE (Neg); OCCULT BLOOD,URINE NEGATIVE (Neg); PH,URINE 6.5 (4.8-8.0); PROTEIN,URINE NEGATIVE (Neg); UROBILINOGEN,URINE 0.2 E.U/dL (0.2-1.0)
[2019-09-01 19:42] LABS: UA COLLECTION TYPE CLN CATCH MIDSTREAM
[2019-09-01 19:45] LABS: BACTERIA,URINE NONE SEEN /HPF (Neg); RBC,URINE NONE SEEN /HPF (0-2); SQUAMOUS EPITHELIAL CELL,UR MODERATE /LPF (FEW); WBC,URINE 0-4 /HPF (0-4)
[2019-09-01 19:46] LABS: AMORPHOUS URATES 1+; COARSE GRANULAR CAST 0-3 /LPF (NEGATIVE); TRANSITIONAL EPI CELLS,URINE FEW /HPF
[2019-09-01] MEDS ORDERED: nitrofuran/nitrofuran macrocrysal 100 MG capsule PO ONE (20:05)
[2019-09-01] MEDS ORDERED: NITR100C6 PO (20:06)
[2019-09-01 20:31] VITALS: BP 116/52
== END 2019-09-01 20:31 | disposition home or self-care (01) ==
LOC: ER 19:10
DX: N39.0 Urinary tract infection, site not specified (principal); J45.909 Unspecified asthma, uncomplicated; G89.29 Other chronic pain; F41.9 Anxiety disorder, unspecified; F32.9 Major depressive disorder, single episode, unspecified; F20.9 Schizophrenia, unspecified; Z88.6 Allergy status to analgesic agent; Z79.899 Other long term (current) drug therapy
CPT/HCPCS: 81001; 87088; 99283

== ENCOUNTER 2019-09-22 03:10 | Emergency (ER) | payer MEDICAID ==
[~2019-09-22] VITALS: Ht 149.9 cm; Wt 86.0 kg
[~2019-09-22 03:10] MED LIST changes: +NITR100C6 PO
[2019-09-22 03:14] VITALS: BP 135/82
--- NOTE | 2019-09-22 03:34 | NUR ---
DR NICOLE ESCORTED PT TO GET VISUAL ACUITY TEST.
== END 2019-09-22 04:27 | disposition home or self-care (01) ==
LOC: ER 03:11
DX: H53.8 Other visual disturbances (principal); J45.909 Unspecified asthma, uncomplicated; F41.9 Anxiety disorder, unspecified; F32.9 Major depressive disorder, single episode, unspecified; F20.9 Schizophrenia, unspecified; G89.29 Other chronic pain; Z88.8 Allergy status to other drugs, medicaments and biological substances; Z79.899 Other long term (current) drug therapy
CPT/HCPCS: 99282

== ENCOUNTER 2019-10-10 16:47 | Emergency (ER) | payer MEDICAID ==
[~2019-10-10] VITALS: Ht 149.9 cm; Wt 85.0 kg
[2019-10-10 17:45] LABS: BASOPHILS # (AUTO) 0.1 X10'3 (0-0.2); BASOPHILS % (AUTO) 0.6 % (0-1); EOSINOPHILS # (AUTO) 0.1 X10'3 (0-0.9); EOSINOPHILS % (AUTO) 0.5 % (0-6); HEMATOCRIT 42.7 % (35.0-45.0); HEMOGLOBIN 14.2 g/dl (12.0-16.0); LYMPHOCYTES # (AUTO) 3.6 X10'3 (1.1-4.8); LYMPHOCYTES % (AUTO) 33.7 % (21-51); MEAN CORPUSCULAR HEMOGLOBIN 29.1 PG (27.0-31.0); MEAN CORPUSCULAR HGB CONC 33.4 g/dL (33.0-36.5); MEAN CORPUSCULAR VOLUME 87.2 FL (78-98); MEAN PLATELET VOLUME 7.6 FL (7.4-10.4); MONOCYTES # (AUTO) 0.7 X10'3 (0-0.9); MONOCYTES % (AUTO) 6.8 % (2-12); NEUTROPHILS # (AUTO) 6.2 X10'3 (1.8-7.7); NEUTROPHILS % (AUTO) 58.4 % (42-75); PLATELET COUNT 271 X10'3 (140-440); RED CELL DISTRIBUTION WIDTH 14.7 % (11.5-14.5); WHITE BLOOD COUNT 10.6 X10'3 (4.5-11.0)
[2019-10-10 17:52] LABS: CLARITY,URINE SLIGHTLY CLOUDY (Clear); COLOR,URINE STRAW (Yellow); GLUCOSE, URINE NEGATIVE (Neg); KETONES,URINE NEGATIVE (Neg); LEUKOCYTE ESTERASE ,URINE TRACE (Neg); NITRITES, URINE NEGATIVE (Neg); OCCULT BLOOD,URINE NEGATIVE (Neg); PROTEIN,URINE NEGATIVE (Neg); URINE HCG NEGATIVE (NEG); UROBILINOGEN,URINE 0.2 E.U/dL (0.2-1.0)
[2019-10-10 17:54] LABS: UA COLLECTION TYPE CLN CATCH MIDSTREAM
[2019-10-10 17:55] LABS: ALANINE AMINOTRANSFERASE 32 U/L (12-78); ALBUMIN 3.6 G/DL (3.4-5.0); ALBUMIN/GLOBULIN RATIO 0.9 (1.1-1.5); ALKALINE PHOSPHATASE 99 IU/L (46-116); ANION GAP 10 (8-16); ASPARTATE AMINO TRANSFERASE 32 U/L (10-37); BILIRUBIN,TOTAL 0.8 MG/DL (0.1-1.0); BLOOD UREA NITROGEN 8 MG/DL (7-18); BUN/CREATININE RATIO 8.5 (6.6-38.0); CALCIUM 8.7 MG/DL (8.5-10.1); CHLORIDE 107 MMOL/L (99-107); CREATININE 0.94 MG/DL (0.40-0.90); GLUCOSE 114 MG/DL (70-104); POTASSIUM 3.6 MMOL/L (3.5-5.1); SODIUM 141 MMOL/L (135-145); TOTAL CARBON DIOXIDE 24.1 MMOL/L (24-32); TOTAL PROTEIN 7.7 G/DL (6.4-8.2); eGFR 74 ML/MIN
[2019-10-10 18:05] LABS: URINE AMPHETAMINE SCREEN NEGATIVE (Neg); URINE BARBITUATE SCREEN NEGATIVE (Neg); URINE BENZODIAZEPINES SCREEN NEGATIVE (Neg); URINE CANNABINOID SCREEN NEGATIVE (Neg); URINE COCAINE SCREEN NEGATIVE (Neg); URINE METHADONE SCREEN NEGATIVE (Neg); URINE OPIATE SCREEN NEGATIVE (Neg); URINE PHENCYCLIDINE SCREEN NEGATIVE (Neg)
[2019-10-10 18:06] LABS: BACTERIA,URINE 2+ /HPF (Neg); RBC,URINE NONE SEEN /HPF (0-2); SQUAMOUS EPITHELIAL CELL,UR FEW /LPF (FEW)
[2019-10-10] MEDS ORDERED: NITR100C6 PO (18:25)
[2019-10-10] MEDS ORDERED: nitrofuran/nitrofuran macrocrysal 100 MG capsule PO ONE (18:30)
[2019-10-10 18:40] VITALS: BP 129/88
== END 2019-10-10 18:42 | disposition home or self-care (01) ==
LOC: ER 16:47
DX: N39.0 Urinary tract infection, site not specified (principal); J45.909 Unspecified asthma, uncomplicated; G89.29 Other chronic pain; F41.9 Anxiety disorder, unspecified; F32.9 Major depressive disorder, single episode, unspecified; F20.9 Schizophrenia, unspecified; Z88.6 Allergy status to analgesic agent; Z79.2 Long term (current) use of antibiotics; Z79.899 Other long term (current) drug therapy
CPT/HCPCS: 36415; 80053; 80305; 81001; 81025; 82948; 83735; 84443; 85025; 87088; 99283

== ENCOUNTER 2019-11-09 02:15 | Emergency (ER) | payer MEDICAID ==
[~2019-11-09] VITALS: Ht 149.9 cm; Wt 89.1 kg
[2019-11-09 02:48] LABS: URINE HCG NEGATIVE (NEG)
--- NOTE | 2019-11-09 03:04 | NUR ---
bladder scanned bladder scan show 360 ml
[2019-11-09 03:24] LABS: CLARITY,URINE CLEAR (Clear); COLOR,URINE STRAW (Yellow); GLUCOSE, URINE NEGATIVE (Neg); KETONES,URINE NEGATIVE (Neg); LEUKOCYTE ESTERASE ,URINE NEGATIVE (Neg); NITRITES, URINE NEGATIVE (Neg); OCCULT BLOOD,URINE NEGATIVE (Neg); PH,URINE 6.5 (4.8-8.0); PROTEIN,URINE NEGATIVE (Neg); UROBILINOGEN,URINE 0.2 E.U/dL (0.2-1.0)
--- NOTE | 2019-11-09 03:25 | NUR ---
stright cath 14 nepali sterile field . removed 320 ml of light yellow urine , sent speciman to the lab
[2019-11-09 03:35] LABS: UA COLLECTION TYPE STRAIGHT CATH
[2019-11-09 03:52] VITALS: BP 106/70
[2019-11-09] MEDS ORDERED: NITR100C6 PO (23:14)
== END 2019-11-09 03:50 | disposition home or self-care (01) ==
LOC: ER 02:15
DX: R30.0 Dysuria (principal); J45.909 Unspecified asthma, uncomplicated; G89.29 Other chronic pain; F41.9 Anxiety disorder, unspecified; F32.9 Major depressive disorder, single episode, unspecified; F20.9 Schizophrenia, unspecified; Z88.6 Allergy status to analgesic agent; Z79.899 Other long term (current) drug therapy
CPT/HCPCS: 81003; 81025; 99284

== ENCOUNTER 2019-11-09 20:25 | Emergency (ER) | payer MEDICAID ==
[~2019-11-09] VITALS: Ht 149.9 cm; Wt 89.1 kg
[2019-11-09 20:42] VITALS: BP 129/85
[2019-11-09] MEDS ORDERED: LIDOcaine 2% 10ml TOPICAL JELLY (Urojet) TP ONE (22:00)
[2019-11-09 22:26] LABS: CLARITY,URINE CLEAR (Clear); COLOR,URINE YELLOW (Yellow); GLUCOSE, URINE NEGATIVE (Neg); KETONES,URINE NEGATIVE (Neg); LEUKOCYTE ESTERASE ,URINE NEGATIVE (Neg); NITRITES, URINE POSITIVE (Neg); OCCULT BLOOD,URINE NEGATIVE (Neg); PROTEIN,URINE NEGATIVE (Neg); UROBILINOGEN,URINE 0.2 E.U/dL (0.2-1.0)
[2019-11-09 22:27] LABS: URINE HCG NEGATIVE (NEG)
[2019-11-09 22:32] LABS: UA COLLECTION TYPE FOLEY CATH
[2019-11-09 22:34] LABS: BACTERIA,URINE NONE SEEN /HPF (Neg); RBC,URINE NONE SEEN /HPF (0-2); WBC,URINE NONE SEEN /HPF (0-4)
[2019-11-09 22:35] LABS: SQUAMOUS EPITHELIAL CELL,UR NONE SEEN /LPF (FEW)
[2019-11-09 22:47] LABS: BASOPHILS # (AUTO) 0.1 X10'3 (0-0.2); BASOPHILS % (AUTO) 0.6 % (0-1); EOSINOPHILS # (AUTO) 0.1 X10'3 (0-0.9); EOSINOPHILS % (AUTO) 0.7 % (0-6); HEMATOCRIT 42.4 % (35.0-45.0); HEMOGLOBIN 14.2 g/dl (12.0-16.0); LYMPHOCYTES # (AUTO) 3.6 X10'3 (1.1-4.8); LYMPHOCYTES % (AUTO) 31.3 % (21-51); MEAN CORPUSCULAR HGB CONC 33.4 g/dL (33.0-36.5); MEAN CORPUSCULAR VOLUME 86.7 FL (78-98); MEAN PLATELET VOLUME 7.6 FL (7.4-10.4); MONOCYTES # (AUTO) 0.6 X10'3 (0-0.9); MONOCYTES % (AUTO) 5.6 % (2-12); NEUTROPHILS % (AUTO) 61.8 % (42-75); PLATELET COUNT 270 X10'3 (140-440); RED CELL DISTRIBUTION WIDTH 14.6 % (11.5-14.5); WHITE BLOOD COUNT 11.4 X10'3 (4.5-11.0)
[2019-11-09 22:57] LABS: ALBUMIN 3.3 G/DL (3.4-5.0); ANION GAP 8 (8-16); BLOOD UREA NITROGEN 7 MG/DL (7-18); BUN/CREATININE RATIO 7.1 (6.6-38.0); CALCIUM 8.9 MG/DL (8.5-10.1); CHLORIDE 105 MMOL/L (99-107); CREATININE 0.99 MG/DL (0.40-0.90); GLUCOSE 186 MG/DL (70-104); SODIUM 140 MMOL/L (135-145); TOTAL CARBON DIOXIDE 27.3 MMOL/L (24-32); eGFR 70 ML/MIN
[2019-11-09] MEDS ORDERED: NITR100C6 PO (23:14)
== END 2019-11-09 23:42 | disposition home or self-care (01) ==
LOC: ER 20:25
DX: N39.0 Urinary tract infection, site not specified (principal); J45.909 Unspecified asthma, uncomplicated; G89.29 Other chronic pain; R33.9 Retention of urine, unspecified; F41.9 Anxiety disorder, unspecified; F32.9 Major depressive disorder, single episode, unspecified; F20.9 Schizophrenia, unspecified; Z88.8 Allergy status to other drugs, medicaments and biological substances; Z79.899 Other long term (current) drug therapy
CPT/HCPCS: 36415; 51702; 80048; 81001; 81025; 85025; 87088; 99284

== ENCOUNTER 2019-11-13 20:45 | Emergency (ER) | payer MEDICAID ==
[~2019-11-13] VITALS: Ht 149.9 cm; Wt 88.8 kg
[2019-11-13 21:23] LABS: COLOR,URINE YELLOW (Yellow); GLUCOSE, URINE NEGATIVE (Neg); KETONES,URINE NEGATIVE (Neg); LEUKOCYTE ESTERASE ,URINE TRACE (Neg); NITRITES, URINE NEGATIVE (Neg); OCCULT BLOOD,URINE NEGATIVE (Neg); PH,URINE 7.5 (4.8-8.0); PROTEIN,URINE NEGATIVE (Neg); UROBILINOGEN,URINE 0.2 E.U/dL (0.2-1.0)
[2019-11-13 21:24] LABS: URINE HCG NEGATIVE (NEG)
[2019-11-13 21:24] LABS: BASOPHILS # (AUTO) 0.1 X10'3 (0-0.2); BASOPHILS % (AUTO) 0.6 % (0-1); EOSINOPHILS # (AUTO) 0.1 X10'3 (0-0.9); EOSINOPHILS % (AUTO) 0.7 % (0-6); HEMATOCRIT 42.5 % (35.0-45.0); HEMOGLOBIN 14.3 g/dl (12.0-16.0); LYMPHOCYTES # (AUTO) 4.5 X10'3 (1.1-4.8); LYMPHOCYTES % (AUTO) 36.1 % (21-51); MEAN CORPUSCULAR HEMOGLOBIN 29.2 PG (27.0-31.0); MEAN CORPUSCULAR HGB CONC 33.6 g/dL (33.0-36.5); MEAN CORPUSCULAR VOLUME 86.9 FL (78-98); MEAN PLATELET VOLUME 7.8 FL (7.4-10.4); MONOCYTES # (AUTO) 0.8 X10'3 (0-0.9); MONOCYTES % (AUTO) 6.7 % (2-12); NEUTROPHILS % (AUTO) 55.9 % (42-75); PLATELET COUNT 290 X10'3 (140-440); RED BLOOD COUNT 4.89 X10'6 (4.20-5.60); WHITE BLOOD COUNT 12.5 X10'3 (4.5-11.0)
[2019-11-13 21:25] LABS: CLARITY,URINE SLIGHTLY CLOUDY (Clear); UA COLLECTION TYPE CLN CATCH MIDSTREAM
[2019-11-13 21:28] LABS: BACTERIA,URINE FEW /HPF (Neg); RBC,URINE 0-2 /HPF (0-2); SQUAMOUS EPITHELIAL CELL,UR FEW /LPF (FEW)
[2019-11-13 21:34] LABS: ALANINE AMINOTRANSFERASE 28 U/L (12-78); ALBUMIN 3.7 G/DL (3.4-5.0); ALBUMIN/GLOBULIN RATIO 0.9 (1.1-1.5); ALKALINE PHOSPHATASE 109 IU/L (46-116); ANION GAP 7 (8-16); ASPARTATE AMINO TRANSFERASE 22 U/L (10-37); BILIRUBIN,TOTAL 0.5 MG/DL (0.1-1.0); BLOOD UREA NITROGEN 9 MG/DL (7-18); BUN/CREATININE RATIO 9.7 (6.6-38.0); CHLORIDE 103 MMOL/L (99-107); CREATININE 0.93 MG/DL (0.40-0.90); GLUCOSE 140 MG/DL (70-104); LIPASE 150 U/L (73-393); POTASSIUM 3.9 MMOL/L (3.5-5.1); SODIUM 141 MMOL/L (135-145); TOTAL CARBON DIOXIDE 31.4 MMOL/L (24-32); TOTAL PROTEIN 7.6 G/DL (6.4-8.2); eGFR 75 ML/MIN
[2019-11-13] MEDS ORDERED: CEPH500C5 PO (21:48)
[2019-11-13] MEDS ORDERED: PHEN-824 PO (21:48)
[2019-11-13 21:52] VITALS: BP 104/71
== END 2019-11-13 21:53 | disposition home or self-care (01) ==
LOC: ER 20:46
DX: N39.0 Urinary tract infection, site not specified (principal); R10.31 Right lower quadrant pain; R10.32 Left lower quadrant pain; J45.909 Unspecified asthma, uncomplicated; G89.29 Other chronic pain; Z88.6 Allergy status to analgesic agent; Z79.899 Other long term (current) drug therapy
CPT/HCPCS: 36415; 80053; 81001; 81025; 83690; 85025; 87077; 87088; 87186; 99283

== ENCOUNTER 2019-11-19 20:22 | Emergency (ER) | payer MEDICAID ==
[~2019-11-19] VITALS: Ht 149.9 cm; Wt 88.9 kg
[~2019-11-19 20:22] MED LIST changes: +CEPH500C5 PO; +PHEN-824 PO
[2019-11-19 20:38] VITALS: BP 140/90
[2019-11-19 21:15] LABS: CLARITY,URINE SLIGHTLY CLOUDY (Clear); COLOR,URINE YELLOW (Yellow); GLUCOSE, URINE 250 mg/dl (Neg); KETONES,URINE NEGATIVE (Neg); LEUKOCYTE ESTERASE ,URINE TRACE (Neg); NITRITES, URINE NEGATIVE (Neg); OCCULT BLOOD,URINE TRACE-INTACT (Neg); PROTEIN,URINE NEGATIVE (Neg); UROBILINOGEN,URINE 0.2 E.U/dL (0.2-1.0)
[2019-11-19 21:17] LABS: UA COLLECTION TYPE CLN CATCH MIDSTREAM; URINE HCG NEGATIVE (NEG)
[2019-11-19 21:25] LABS: BACTERIA,URINE FEW /HPF (Neg); MUCUS STRANDS NONE SEEN /LPF (Neg); RBC,URINE 0-2 /HPF (0-2); SQUAMOUS EPITHELIAL CELL,UR MANY /LPF (FEW); WBC,URINE 0-4 /HPF (0-4); YEAST FEW /HPF (NEGATIVE)
[2019-11-19] MEDS ORDERED: BETH25TA43 PO (23:08)
== END 2019-11-19 23:58 | disposition home or self-care (01) ==
LOC: ER 20:22
DX: R33.9 Retention of urine, unspecified (principal); J45.909 Unspecified asthma, uncomplicated; G89.29 Other chronic pain; Z88.6 Allergy status to analgesic agent; Z79.899 Other long term (current) drug therapy
CPT/HCPCS: 51702; 81001; 81025; 99284

== ENCOUNTER 2019-11-21 10:25 | Emergency (ER) | payer MEDICAID ==
[~2019-11-21] VITALS: Ht 149.9 cm; Wt 88.0 kg
[~2019-11-21 10:25] MED LIST changes: +BETH25TA43 PO
[2019-11-21 10:30] VITALS: BP 123/78
[2019-11-21] MEDS ORDERED: LIDOcaine 2% 10ml TOPICAL JELLY (Urojet) TP ONE (11:05)
== END 2019-11-21 11:47 | disposition home or self-care (01) ==
LOC: ER 10:26
DX: T83.9XXA Unspecified complication of genitourinary prosthetic device, implant and graft, initial encounter (principal); R33.9 Retention of urine, unspecified; J45.909 Unspecified asthma, uncomplicated; G89.29 Other chronic pain; F41.9 Anxiety disorder, unspecified; F32.9 Major depressive disorder, single episode, unspecified; F20.9 Schizophrenia, unspecified; Z88.6 Allergy status to analgesic agent; Z79.899 Other long term (current) drug therapy; Y84.6 Urinary catheterization as the cause of abnormal reaction of the patient, or of later complication, without mention of misadventure at the time of the procedure; Y92.89 Other specified places as the place of occurrence of the external cause
CPT/HCPCS: 51702; 99284

== ENCOUNTER 2019-11-22 17:16 | Emergency (ER) | payer MEDICAID ==
[~2019-11-22] VITALS: Ht 149.9 cm; Wt 83.0 kg
[~2019-11-22 17:16] MED LIST changes: -CEPH500C5 PO
--- NOTE | 2019-11-22 18:52 | NUR ---
Removed 10 cc of fluid from pt bailey in place and removed bailey as instructed by Jun Flores. po chAllenge INITIATED REQUESTED
[2019-11-22 19:46] VITALS: BP 136/84
== END 2019-11-22 19:48 | disposition home or self-care (01) ==
LOC: ER 17:17
DX: R30.0 Dysuria (principal); J45.909 Unspecified asthma, uncomplicated; G89.29 Other chronic pain; F41.9 Anxiety disorder, unspecified; F32.9 Major depressive disorder, single episode, unspecified; F20.9 Schizophrenia, unspecified; Z88.6 Allergy status to analgesic agent; Z79.899 Other long term (current) drug therapy
CPT/HCPCS: 51702; 99281; 99284

== ENCOUNTER 2019-11-28 01:05 | Emergency (ER) | payer MEDICAID ==
[~2019-11-28] VITALS: Ht 149.9 cm; Wt 86.3 kg
[2019-11-28 02:07] LABS: BASOPHILS # (AUTO) 0.1 X10'3 (0-0.2); BASOPHILS % (AUTO) 0.9 % (0-1); EOSINOPHILS # (AUTO) 0.1 X10'3 (0-0.9); HEMATOCRIT 42.6 % (35.0-45.0); HEMOGLOBIN 14.3 g/dl (12.0-16.0); LYMPHOCYTES # (AUTO) 4.5 X10'3 (1.1-4.8); LYMPHOCYTES % (AUTO) 34.5 % (21-51); MEAN CORPUSCULAR HEMOGLOBIN 29.1 PG (27.0-31.0); MEAN CORPUSCULAR HGB CONC 33.6 g/dL (33.0-36.5); MEAN CORPUSCULAR VOLUME 86.8 FL (78-98); MEAN PLATELET VOLUME 7.4 FL (7.4-10.4); MONOCYTES # (AUTO) 0.9 X10'3 (0-0.9); MONOCYTES % (AUTO) 6.9 % (2-12); NEUTROPHILS # (AUTO) 7.4 X10'3 (1.8-7.7); NEUTROPHILS % (AUTO) 56.7 % (42-75); PLATELET COUNT 287 X10'3 (140-440); RED BLOOD COUNT 4.91 X10'6 (4.20-5.60); RED CELL DISTRIBUTION WIDTH 14.8 % (11.5-14.5)
[2019-11-28 02:18] LABS: ALANINE AMINOTRANSFERASE 27 U/L (12-78); ALBUMIN 3.6 G/DL (3.4-5.0); ALKALINE PHOSPHATASE 97 IU/L (46-116); ANION GAP 8 (8-16); ASPARTATE AMINO TRANSFERASE 33 U/L (10-37); BILIRUBIN,TOTAL 0.8 MG/DL (0.1-1.0); BLOOD UREA NITROGEN 9 MG/DL (7-18); BUN/CREATININE RATIO 9.3 (6.6-38.0); CALCIUM 10.5 MG/DL (8.5-10.1); CHLORIDE 104 MMOL/L (99-107); CREATININE 0.97 MG/DL (0.40-0.90); GLUCOSE 144 MG/DL (70-104); POTASSIUM 3.7 MMOL/L (3.5-5.1); SODIUM 139 MMOL/L (135-145); TOTAL CARBON DIOXIDE 26.6 MMOL/L (24-32); TOTAL PROTEIN 7.3 G/DL (6.4-8.2); eGFR 71 ML/MIN
[2019-11-28 02:29] VITALS: BP 133/86
== END 2019-11-28 02:30 | disposition home or self-care (01) ==
LOC: ER 01:06
DX: R07.89 Other chest pain (principal); R11.0 Nausea; J45.909 Unspecified asthma, uncomplicated; G89.29 Other chronic pain; F41.9 Anxiety disorder, unspecified; F32.9 Major depressive disorder, single episode, unspecified; F20.9 Schizophrenia, unspecified; Z88.6 Allergy status to analgesic agent; Z79.899 Other long term (current) drug therapy
CPT/HCPCS: 36415; 80053; 84484; 85025; 93005; 99284

== ENCOUNTER 2023-06-05 00:24 | Outpatient (CLI) | payer MEDICAID ==
[2023-06-05] VITALS (21 sets, daily range): BP systolic 110–141; BP diastolic 52–86; PULSE 73–99
[~2023-06-05 00:24] MED LIST changes: -BETH25TA43 PO; -GABA-534 PO; +GABA-535 PO; -RISP2TAB3 PO; +RISP2TAB85 PO; -VENL150C2 PO; +VENL150C4 PO
== END 2023-06-05 23:59 | disposition home or self-care (01) ==
LOC: CARD DIAG 00:24
PROVIDERS: ATTEND Registered Nurse
DX: R00.0 Tachycardia, unspecified (principal); R42 Dizziness and giddiness
CPT/HCPCS: 93660

== ENCOUNTER 2025-01-21 08:35 | Outpatient (CLI) | payer MEDICAID ==
[~2025-01-21 08:35] MED LIST changes: +RISP-32 PO; -RISP2TAB85 PO; -VENL150C4 PO; +VENL150C5 PO
[2025-01-21 09:47] VITALS: PULSE 128; RESP 16; O2SAT 99
--- NOTE | 2025-01-21 15:18 | PROCEDURE NOTE - Respiratory ---
Procedure Note-Respiratory Providers to CC Copies To 1: OTILIA PEREA Procedure Name: This is a complete pulmonary function study dated January 21, 2025. Spirometry measurements: Both the forced vital capacity and the FEV1 are normal. The FEV1 ratio is normal. All of the measured flow rates are normal. Bronchodilator was not administered as part of the study. Lung volume measurements: All of the lung volume determinations are within normal limits. Lung diffusion measurement: The DLCO measurement is normal. Airway resistance measurement: The airway resistance shows no elevation. Conclusion: Normal pulmonary function study. We have no previous studies for comparison. EMI LEW MD Jan 21, 2025 15:18
== END 2025-01-21 23:59 | disposition home or self-care (01) ==
LOC: RT 08:35
PROVIDERS: ATTEND Physician Assistant
DX: R94.2 Abnormal results of pulmonary function studies (principal)
CPT/HCPCS: 94010; 94727; 94729; 94760

== ENCOUNTER 2025-04-04 19:08 | Emergency (ER) | payer MEDICAID ==
[~2025-04-04] VITALS: Ht 147.3 cm; Wt 80.2 kg
[2025-04-04 19:44] VITALS: BP 101/64; PULSE 105; TEMP 98.1; O2SAT 98
--- NOTE | 2025-04-04 20:11 | RADIOLOGY REPORT ---
CLINICAL HISTORY: SEPSIS WORKUP TECHNIQUE: Single view of the chest was obtained. COMPARISON: None FINDINGS: The heart size and pulmonary vasculature are normal. The lungs are clear. IMPRESSION: NO ACUTE CARDIOPULMONARY PROCESS.
[2025-04-04 20:54] VITALS: RESP 16
[2025-04-04 21:04] LABS: CREATININE 0.77 MG/DL (0.40-0.90); TOTAL CARBON DIOXIDE 27.3 MMOL/L (24-32); eCRCL 70 ML/MIN; eGFR 89 ML/MIN
[2025-04-04 21:05] LABS: MEAN PLATELET VOLUME 7.7 FL (7.4-10.4); RED CELL DISTRIBUTION WIDTH 15.6 % (11.5-14.5)
[2025-04-04 21:50] LABS: LEUKOCYTE ESTERASE ,URINE SMALL (Neg); NITRITES, URINE NEGATIVE (Neg); OCCULT BLOOD,URINE NEGATIVE (Neg)
[2025-04-04 21:56] LABS: UA COLLECTION TYPE CLN CATCH MIDSTREAM
[2025-04-04 22:00] LABS: MUCUS STRANDS MODERATE /LPF (Neg); SQUAMOUS EPITHELIAL CELL,UR MODERATE /LPF (FEW)
[2025-04-04 22:01] LABS: WBC CLUMPS,URINE MODERATE /HPF (NEGATIVE)
[2025-04-04] MEDS ORDERED: SULF1TAB45 PO (22:10)
--- NOTE | 2025-04-04 22:16 | Physician Documentation ---
History of Present Illness ~ Chief Complaint: Urinary Symptoms Stated Complaint: BLADDER PAIN/VOMITING Time Seen by MD: 20:43 Primary Medical Doctor: Dr. Harris Mode of Arrival: POV, Ambulatory HPI 29-year-old female presents to the ED with a complaint of two weeks of pelvic pain. She states her last few days she has had body aches and chills. Denies any fevers. Medication Reconciliation Allergies: Coded Allergies: ibuprofen (Verified Allergy, Unknown, CHEST PAIN, 11/19/19) naproxen (Verified Allergy, Unknown, 04/04/25) ziprasidone (Verified Allergy, Unknown, 04/04/25) Scheduled Acetaminophen (Tylenol), 1 TABLET PO Q4HPRN, (Reported) Aripiprazole* (Abilify*), 1 TAB PO DAILY, (Reported) Ethynodiol D-Ethinyl Estradiol ([place] 1-35E Tablet), 1 TAB PO DAILY, (Reported) Fluoxetine Hcl (Prozac), 1 CAP PO QAM, (Reported) Gabapentin (Gabapentin), 1 CAP PO HS, (Reported) Hydrocodone/Acetaminophen ([place] 5-325 Tablet), 1 TAB PO TID PRN Lorazepam* (Ativan*), 1 TAB PO Q12H, (Reported) Metformin Hcl* (Glucophage*), 1 TAB PO Q12H, (Reported) Nitrofurantoin Monohyd/M-Cryst (Macrobid 100 mg Capsule), 1 CAP PO Q12H Nitrofurantoin Monohyd/M-Cryst (Macrobid 100 mg Capsule), 1 CAP PO Q12H Nitrofurantoin Monohyd/M-Cryst (Macrobid 100 mg Capsule), 1 CAP PO Q12H Ondansetron Hcl (Zofran), 1 TAB PO Q6H, (Reported) Pantoprazole Sodium (PROTONIX tablet), 1 TAB PO DAILY Phenazopyridine HCl (Pyridium), 1 TAB PO Q8H Prazosin Hcl (Minipress), 1 CAP PO HS, (Reported) Propranolol Hcl* (Inderal*), 1 TAB PO BID, (Reported) Risperidone (Risperidone), 1 TAB PO HS, (Reported) Venlafaxine HCl (Effexor Xr), 1 CAP PO BID, (Reported) Venlafaxine Hcl (Effexor Xr), 1 CAP PO DAILY, (Reported) Past Medical History Past Medical History: Asthma, Chronic Pain, *PSYCH*, Anxiety, Depression, Psychosis, Schizophrenia Past Surgical History: no surgical history Alcohol Use: Rarely Drug Use: none Lives with: Mother Lives In: Home Occupation: student Review of Systems All Other Systems at this time: Reviewed and Negative ROS As stated above in the HPI, otherwise all systems are reviewed and negative. Physical Exam Vital Signs: Temperature: 98.1, Source: Oral, Heart Rate: 105, Respiratory Rate: 16, BP: 101/64, Pulse Oximetry: 98, Weight: 80.230 Physical Exam Cardiovascular: Regular rate and rhythm, no murmurs. Gastrointestinal: Soft, nontender, nondistended. Bowels sounds present. Nega tive CVA tenderness Neurologic: Oriented x4. Psychiatric: Normal mood and affect. Skin: Normal color, warm and dry. No edema, no ecchymosis. Progress Results/Orders Results/Orders Completed Orders - MANUEL HOYOS NP Phenazopyridine Tablet (Pyridium Tablet) (04/04/25 22:00) Sulfamethox/Trimetho. Ds Tab (Septra Ds (04/04/25 22:10) Medications Received in ER Medications (Trade) Dose Ordered Sig/Machelle Route PRN Reason Start Time Stop Time Status Last Admin Dose Admin (Pyridium tablet) 100 mg ONCE ONCE PO 04/04/25 22:00 04/04/25 22:01 DC 04/04/25 22:24 100 MG (Septra DS tab) 1 tab ONCE ONCE PO 04/04/25 22:10 04/04/25 22:11 DC 04/04/25 22:24 1 TAB Vital Signs 04/04/25 04/04/25 19:44 20:54 Temp 98.1 Pulse 105 Resp 20 16 B/P (MAP) 101/64 Pulse Ox 98 Laboratory Tests Test 04/04/25 20:34 04/04/25 20:58 White Blood Count 8.2 Red Blood Count 4.46 Hemoglobin 12.3 Hematocrit 36.2 Mean Corpuscular Volume 81.2 Mean Corpuscular Hemoglobin 27.5 Mean Corpuscular Hemoglobin Concent 33.9 Red Cell Distribution Width 15.6 H Platelet Count 289 Mean Platelet Volume 7.7 Neutrophils (%) (Auto) 42.5 Lymphocytes (%) (Auto) 49.3 Monocytes (%) (Auto) 6.2 Eosinophils (%) (Auto) 1.4 Basophils (%) (Auto) 0.6 Neutrophils # (Auto) 3.5 Lymphocytes # (Auto) 4.1 Monocytes # (Auto) 0.5 Eosinophils # (Auto) 0.1 Basophils # (Auto) 0.0 CBC Comment Sodium Level 141 Potassium Level 4.0 Chloride Level 108 H Carbon Dioxide Level 27.3 Anion Gap 6 L Blood Urea Nitrogen 5 L Creatinine 0.77 Estimated GFR/1.73 m2 89 BUN/Creatinine Ratio 6.5 L Glucose Level 106 H Lactic Acid Level 1.5 Calcium Level 8.5 Albumin 3.1 L Procalcitonin < 0.05 Chemistry Comments Urine Specimen Description Cln catch midstream Urine Color Yellow Urine Clarity Clear Urine pH 7.0 Urine Specific [place] 1.020 Urine Protein Negative Urine Glucose (UA) Negative Urine Ketones Negative Urine Occult Blood Negative Urine Nitrite Negative Urine Bilirubin Negative Urine Urobilinogen 0.2 Urine Leukocyte Esterase Small H Urine RBC 0-2 Urine WBC 10-20 H Urine WBC Clumps Moderate Urine Squamous Epithelial Cells Moderate Urine Bacteria 3+ Urine Mucus Moderate Urine Culture Indicated Indicated Volume Urine Centrifuged 10 ml Urine Comment Medical Decision Making Findings Analysis indicates a positive bacteria. Gave the patient has some Pyridium while she was here to help with the symptoms. Start her ring her on sulfa and going to discharge her with the antibiotic. Urinary Diff Dx:Considerations: Include: AAA, , Aortic dissection, Appendicitis, Bowel obstruction, Cholelithiasis, Choleangitis, DJD, Ectopic , Hepatitis, HNP, Impaction, Intrauterine , Musculoskeletal pain, Ovarian torsion, Pancreatitis, PID, Post-Op complication, Pyelonephritis, Renal failure, Strain, Urinary Obstruction, Urolithiasis, Urinary retention, UTI, Vaginitis, Other Departure Disposition: HOME / SELF CARE / HOMELESS Impression: Primary Impression: Acute urinary tract infection Discharge Instructions: Urinary Tract Infection, Adult Referrals: NO PRIMARY CARE PROVIDER (PCP) Prescriptions Sulfamethoxazole/Trimethoprim (Septra Ds Tab) 800 Mg/160 Mg Tablet 1 TAB PO Q12H for 10 Days, #20 TAB Prov: MANUEL HOYOS SALES ASSIST[employer] 04/04/25 Education Educated: Patient Educated regarding: diagnosis Signature Scribe Signature: f Attestation: Scribed for Manuel Hoyos Odd Job Laborer by Manuel Hoyos - DANA . 04/04/25 22:36 MANUEL HOYOS NP Apr 04, 2025 22:16
[2025-04-04] MEDS: phenazopyridine 100mg tablet PO ONE (22:24)
[2025-04-04] MEDS: sulfamethoxazole/trimethoprim DS (800/160mg) tablet PO ONE (22:24)
== END 2025-04-04 22:55 | disposition home or self-care (01) ==
LOC: ER 19:09
DX: N39.0 Urinary tract infection, site not specified (principal); J45.909 Unspecified asthma, uncomplicated; G89.29 Other chronic pain; F41.9 Anxiety disorder, unspecified; F32.A Depression, unspecified; F20.9 Schizophrenia, unspecified; Z88.6 Allergy status to analgesic agent; Z88.8 Allergy status to other drugs, medicaments and biological substances; Z79.899 Other long term (current) drug therapy
CPT/HCPCS: 36415; 71045; 80048; 81001; 83605; 84145; 85025; 87040; 87088; 99284

== ENCOUNTER 2025-04-09 19:23 | Emergency (ER) | payer MEDICAID ==
[~2025-04-09] VITALS: Ht 147.3 cm; Wt 77.3 kg
[~2025-04-09 19:23] MED LIST changes: +SULF1TAB45 PO
[2025-04-09 19:26] VITALS: BP 112/75; PULSE 102; TEMP 98.2; O2SAT 100
--- NOTE | 2025-04-09 20:05 | Physician Documentation ---
History of Present Illness ~ Chief Complaint: Urinary Symptoms Stated Complaint: BLADDRER PAIN Time Seen by MD: 19:59 Primary Medical Doctor: Dr. Steven PRASAD This is a 29-year-old female with a known percutaneous suprapubic catheter, prior history of nephrostomy, now removed, presents for evaluation of ongoing dark urine, foul-smelling urine, and now developing flank pain. She has been seen, diagnosed with a UTI, has been taking Bactrim. Her symptoms unfortunately not improving. No palliating or aggravating factors. She is starting to feel generally ill. Denies concern for tobacco, alcohol or illicit substances. Medication Reconciliation Allergies: Coded Allergies: ibuprofen (Verified Allergy, Unknown, CHEST PAIN, 04/09/25) naproxen (Verified Allergy, Unknown, 04/09/25) ziprasidone (Verified Allergy, Unknown, 04/09/25) Scheduled Acetaminophen (Tylenol), 1 TABLET PO Q4HPRN, (Reported) Aripiprazole* (Abilify*), 1 TAB PO DAILY, (Reported) Ethynodiol D-Ethinyl Estradiol (Zovia 1-35E Tablet), 1 TAB PO DAILY, (Reported) Fluoxetine Hcl (Prozac), 1 CAP PO QAM, (Reported) Gabapentin (Gabapentin), 1 CAP PO HS, (Reported) Hydrocodone/Acetaminophen ([place] 5-325 Tablet), 1 TAB PO TID PRN Lorazepam* (Ativan*), 1 TAB PO Q12H, (Reported) Metformin Hcl* (Glucophage*), 1 TAB PO Q12H, (Reported) Nitrofurantoin Monohyd/M-Cryst (Macrobid 100 mg Capsule), 1 CAP PO Q12H Nitrofurantoin Monohyd/M-Cryst (Macrobid 100 mg Capsule), 1 CAP PO Q12H Nitrofurantoin Monohyd/M-Cryst (Macrobid 100 mg Capsule), 1 CAP PO Q12H Ondansetron Hcl (Zofran), 1 TAB PO Q6H, (Reported) Pantoprazole Sodium (PROTONIX tablet), 1 TAB PO DAILY Phenazopyridine HCl (Pyridium), 1 TAB PO Q8H Prazosin Hcl (Minipress), 1 CAP PO HS, (Reported) Propranolol Hcl* (Inderal*), 1 TAB PO BID, (Reported) Risperidone (Risperidone), 1 TAB PO HS, (Reported) Sulfamethoxazole/Trimethoprim (Septra Ds Tab), 1 TAB PO Q12H Venlafaxine HCl (Effexor Xr), 1 CAP PO BID, (Reported) Venlafaxine Hcl (Effexor Xr), 1 CAP PO DAILY, (Reported) Past Medical History Past Medical History: Asthma, Chronic Pain, *PSYCH*, Anxiety, Depression, Psychosis, Schizophrenia Past Surgical History: no surgical history Alcohol Use: Rarely Drug Use: none Lives with: Mother Lives In: Home Occupation: student Review of Systems ROS 10 point review of systems was performed and unless noted above in HPI is negative for acute process/complaint. Physical Exam Vital Signs: Temperature: 98.2, Source: Oral, Heart Rate: 102, Respiratory Rate: 18, BP: 112/75, Pulse Oximetry: 100, Weight: 77.270 Physical Exam GENERAL: Awake, alert, oriented, GCS 15, no apparent distress, non-toxic appearing, answers questions, follows commands appropriately. Examined in triage HEENT: Atraumatic, normocephalic, pupils equal, extraocular muscles intact, sclerae anicteric, mucus membranes moist, oropharynx is clear, no stridor. NECK: supple, full active range of motion, trachea midline, no thyromegaly, no lymphadenopathy, no JVD. CARDIOVASCULAR: regular rate/rhythm, no murmurs/gallops/rubs, Pulses are 2+ in all extremities and symmetric. Capillary refill less than 2 seconds. PULMONARY: Nonlabored, good air movement ,no respiratory distress, speaking in full sentences, clear to auscultation bilaterally, no wheezing, no ronchi, no rales, no accessory muscle use. GASTROINTESTINAL: Soft, non-tender, non-distended, normal active bowel sounds, no organomegaly, no pulsatile masses, bilateral CVA tenderness. NEUROLOGIC: Lucid with normal mental status. Normal facial symmetry. Moves all extremities symmetrically and with purpose. No truncal ataxia. Speech is fluid without evidence of dysarthria or aphasia, no focal deficits appreciated. MUSCULOSKELETAL: There is full range of motion of all extremities. There is no joint pain or joint swelling or joint erythema. There is no muscle pain or tenderness or swelling. EXTREMITIES: warm, well-perfused, no cyanosis, no clubbing, no edema, no acute deformities. Skin: warm, dry, no rashes or lesions, no jaundice, no petechiae orpurpura. No ecchymosis. PSYCHIATRIC: Normal affect, normal insight, normal concentration. Focused exam: [Suprapubic catheter noted] Progress Results/Orders Results/Orders Orders - EDWARD PETERS DO Cult Urine + [address] (04/09/25 21:08) Completed Orders - EDWARD PETERS DO Hcg, Ur Ql (04/09/25 19:30) BMP (04/09/25 19:30) Lipase (04/09/25 19:30) CMP (04/09/25 19:30) Cbc/Diff (04/09/25 20:06) Ua W/Microscopic, Cult If Ind (04/09/25 20:45) Vital Signs 04/09/25 19:26 Temp 98.2 Pulse 102 Resp 18 B/P (MAP) 112/75 Pulse Ox 100 Laboratory Tests Test 04/09/25 19:54 04/09/25 20:43 04/09/25 20:45 CBC Comment Sodium Level 139 Potassium Level 4.6 Chloride Level 106 Carbon Dioxide Level 25.3 Anion Gap 8 Blood Urea Nitrogen 10 Creatinine 0.91 H Estimated GFR/1.73 m2 74 BUN/Creatinine Ratio 11.0 Glucose Level 99 Calcium Level 8.5 Total Bilirubin 0.7 Aspartate Amino Transf (AST/SGOT) 14 Alanine Aminotransferase (ALT/SGPT) 12 Alkaline Phosphatase 72 Total Protein 8.0 Albumin 3.5 Globulin 4.5 H Albumin/Globulin Ratio 0.8 L Lipase 22 Chemistry Comments White Blood Count 9.7 Red Blood Count 5.24 Hemoglobin 14.1 Hematocrit 42.9 Mean Corpuscular Volume 81.9 Mean Corpuscular Hemoglobin 27.0 Mean Corpuscular Hemoglobin Concent 32.9 L Red Cell Distribution Width 16.2 H Platelet Count 369 Mean Platelet Volume 7.3 L Neutrophils (%) (Auto) 49.4 Lymphocytes (%) (Auto) 43.5 Monocytes (%) (Auto) 5.7 Eosinophils (%) (Auto) 0.9 Basophils (%) (Auto) 0.5 Neutrophils # (Auto) 4.8 Lymphocytes # (Auto) 4.2 Monocytes # (Auto) 0.6 Eosinophils # (Auto) 0.1 Basophils # (Auto) 0.0 Urine Specimen Description Cln catch midstream Urine Color Yellow Urine Clarity Slightly cloudy Urine pH 6.0 Urine Specific [place] >=1.030 Urine Protein 100 H Urine Glucose (UA) Negative Urine Ketones Trace H Urine Occult Blood Large H Urine Nitrite Negative Urine Bilirubin Negative Urine Urobilinogen 0.2 Urine Leukocyte Esterase Small H Urine RBC 3-10 Urine WBC Tntc H Urine Squamous Epithelial Cells Few Urine Calcium Oxalate Crystals Few Urine Bacteria 2+ Urine Yeast Many Urine Culture Indicated Indicated Volume Urine Centrifuged 10 ml Urine HCG, Qualitative Negative Urine Comment Microbiology Date/Time Source Procedure Growth Status 04/09/25 21:08 Urine Clean Catch Midstream Urine Culture - Preliminary Culture received. Resulted Medical Decision Making Findings Facility Status: ED Holds, E process The plan was discussed with the patient, who demonstrates clear understanding of the plan and is in agreement with the plan unless otherwise noted in the chart. All questions have been answered, all concerns were addressed unless otherwise documented. I was available throughout their ED stay for frequent reassessment and questions. Differential Diagnoses (considered and possible or likely): [Pyelitis, pyelonephritis, urinary tract infection, colonization] ??Differential Diagnoses (considered and unlikely, not requiring evaluation currently): [Denies any other symptoms] MDM Data Please see [facility] for the following: Independent Historians and external Records Review. Historian: [Patient] Independent Historians: ?[Record review] Medication Management: [Reviewed medication list] Social History and determinants: [Reviewed] Please see the body of the note for the following: Any independent inter pretations of ECG, imaging studies. All vitals signs/haemodynamics, ordered tests were independently reviewed and interpreted by myself. Nursing triage complaint and vitals reviewed, additional nursing notes were reviewed as available and I agree unless otherwise noted or documented in contradiction in the chart Vital Signs: Independently reviewed Labs: Independently interpreted Imaging: Independently interpreted Old Medical Records: Independently reviewed, see [facility] for relevant summary and information Additionally notably showing: [Initially tachycardic, resolved with the rest alone. Otherwise hemodynamically stable, CBC is normal without evidence of white count, metabolic panel shows no acute kidney injury. Urine is fulminant with the positive for UTI.] Tests considered but not ordered include: [Imaging does not appear to be necessary at this time] Social Determinants of Health Impact: Patient was evaluated in [facility], [facility] [place] with limited access to healthcare due to below par ratio of patient to medical providers. [] Comorbid Conditions Impacting Present Evaluation and Care/Treatment: [Frequent UTIs] Management Discussions with other Healthcare Providers: [None] Treatment and Disposition Medication Management (Given or considered): See EMR for details Consideration for Hospitalization/Escalation/Deescalation of Care: Admission for observation has been considered, [however the patient is able to tolerate p.o., their symptoms are controlled, they are able to rely on oral medications, and their chief complaint/diagnosis can be managed on outpatient basis.] ?ED Course:?[No clinical deterioration] ?Shared decision making:?[Patient is hemodynamically stable for discharge home with follow with their primary care provider. [ ] Specific and cautious return precautions provided and discussed with full understanding. Any incidental findings were also discussed and follow up recommendations given. [] All questions answered. Patient/family were able to verbalize back return precautions. Patient/family agree to plan. Copies of imaging and laboratory studies were provided.] Code status:?FULL Please see the full Electronic Medical Record for full details of nursing documentation, medications list, other records of complete past medical history and conditions, vital signs, laboratory studies, and any radiologic study interpretations by radiologists. Portions of this note were completed using [employer] dictation software and as a result there may exist minor errors in spelling. I have reviewed elements of past family and social history and agree as included in note. Departure Disposition: 01 HOME / SELF CARE / HOMELESS Impression: Primary Impression: Acute pyelonephritis Condition: Stable Discharge Instructions: Urinary Tract Infection, Adult Referrals: NO PRIMARY CARE PROVIDER (PCP) Prescriptions Cefpodoxime Proxetil (Vantin) 200 Mg Tablet 1 TAB PO Q12H for 10 Days, #20 TAB Prov: EDWARD PETERS DO 04/09/25 Education Educated: Patient Educated regarding: diagnosis, treatment, prognosis, need for follow up Signature Scribe Signature: No scribe Attestation: Date: Apr 09, 2025 Time: 20:05 This note accurately reflects clinical decisions, work performed by myself, Edward Peters, EDWARD CARIAS DO Apr 09, 2025 20:05
[2025-04-09 20:15] LABS: CREATININE 0.91 MG/DL (0.40-0.90); TOTAL CARBON DIOXIDE 25.3 MMOL/L (24-32); eCRCL 59 ML/MIN; eGFR 74 ML/MIN
[2025-04-09 20:52] LABS: MEAN PLATELET VOLUME 7.3 FL (7.4-10.4); RED CELL DISTRIBUTION WIDTH 16.2 % (11.5-14.5)
[2025-04-09 20:59] LABS: LEUKOCYTE ESTERASE ,URINE SMALL (Neg); NITRITES, URINE NEGATIVE (Neg); OCCULT BLOOD,URINE LARGE (Neg)
[2025-04-09 21:02] LABS: URINE HCG NEGATIVE (NEG)
[2025-04-09 21:06] LABS: UA COLLECTION TYPE CLN CATCH MIDSTREAM
[2025-04-09 21:08] LABS: CAL OXALATE CRYSTALS FEW /HPF (NEGATIVE); SQUAMOUS EPITHELIAL CELL,UR FEW /LPF (FEW); YEAST MANY /HPF (NEGATIVE)
[2025-04-09] MEDS ORDERED: CEFP200T13 PO (23:15)
[2025-04-09 23:38] VITALS: RESP 20
[2025-04-09] MEDS: HYDROcodone/acetaminophen 5mg/325mg tablet PO ONE (23:38)
== END 2025-04-09 23:44 | disposition home or self-care (01) ==
LOC: ER 19:24
DX: N10 Acute pyelonephritis (principal); F20.9 Schizophrenia, unspecified; F41.9 Anxiety disorder, unspecified; F32.A Depression, unspecified; J45.909 Unspecified asthma, uncomplicated; Z88.6 Allergy status to analgesic agent; Z88.8 Allergy status to other drugs, medicaments and biological substances
CPT/HCPCS: 36415; 80053; 81001; 81025; 83690; 85025; 87088; 99283

== ENCOUNTER 2025-04-10 14:30 | Emergency (ER) | payer MEDICAID ==
[~2025-04-10] VITALS: Ht 147.3 cm; Wt 79.7 kg
[~2025-04-10 14:30] MED LIST changes: +CEFP200T13 PO
[2025-04-10 14:31] VITALS: TEMP 98.1
--- NOTE | 2025-04-10 14:52 | RADIOLOGY REPORT ---
EXAM: DI CHEST,SINGLE VIEW HISTORY: SEPSIS PROTOCOL TECHNIQUE: 1 view of the chest COMPARISON: DI CHEST,SINGLE VIEW on DOS: 04/04/25 FINDINGS/IMPRESSION: LUNGS: No pleural effusion, consolidation, or pneumothorax. MEDIASTINUM: Unremarkable. BONES: No acute osseous abnormality. OTHER: None.
[2025-04-10 15:16] LABS: MEAN PLATELET VOLUME 7.2 FL (7.4-10.4); RED CELL DISTRIBUTION WIDTH 16.2 % (11.5-14.5)
[2025-04-10 15:42] LABS: CREATININE 0.96 MG/DL (0.40-0.90); TOTAL CARBON DIOXIDE 22.2 MMOL/L (24-32); eCRCL 56 ML/MIN; eGFR 69 ML/MIN
[2025-04-10 16:21] LABS: LEUKOCYTE ESTERASE ,URINE SMALL (Neg); NITRITES, URINE NEGATIVE (Neg); OCCULT BLOOD,URINE MODERATE (Neg)
[2025-04-10 16:23] LABS: UA COLLECTION TYPE FOLEY CATH
[2025-04-10 16:27] LABS: AMORPHOUS URATES 1+; SQUAMOUS EPITHELIAL CELL,UR FEW /LPF (FEW)
[2025-04-10 16:28] LABS: YEAST MODERATE /HPF (NEGATIVE)
[2025-04-10] MEDS ORDERED: normal saline 1000ML IV soln IVB ONE (16:35)
[2025-04-10] MEDS ORDERED: morphine 4 MG/ML inj SYRINge IV ONE (16:35)
[2025-04-10] MEDS ORDERED: ondansetron/PF 4mg/2ml inj IV ONE (16:35)
--- NOTE | 2025-04-10 17:40 | RADIOLOGY REPORT ---
US ULTRASOUND KIDNEY NON VASC HISTORY: BILATERAL FLANK PAIN COMPARISON: None TECHNIQUE: Sonographic grayscale and color doppler evaluation of the kidneys and urinary bladder was performed. FINDINGS: RIGHT: 9.9 x 4.8 x 6.3 cm. Normal cortical echogenicity and normal contour. No hydronephrosis. No focal renal mass lesion or shadowing stone LEFT: 9.9 x 5.1 x 5.5 cm. Normal cortical echogenicity and normal contour. No hydronephrosis. No focal renal mass lesion or shadowing stone BLADDER: Suprapubic catheter OTHER: None IMPRESSION: 1. Unremarkable retroperitoneal ultrasound without evidence for hydronephrosis.
--- NOTE | 2025-04-10 18:11 | Physician Documentation ---
History of Present Illness Chief Complaint: Flank Pain Stated Complaint: FLANK PAIN Time Seen by MD: 16:11 OK to notify your PCP?: Yes Primary Medical Doctor: Dr. Harris Source: patient Mode of Arrival: Ambulatory Exam Limitations: no limitations HPI 29-year-old female with chief complaint bilateral flank pain which has been ongoing for weeks. Pain is usually 8/10 in severity and has increased now to 10/10. Patient attributes her pain to history of bilateral nephrostomy tube due to urinary retention and obstructive issues which she states is from neurogenic bladder. She now has a permanent suprapubic catheter it was last changed on 04/01/25. She got started on the antibiotics last night for UTI and is taking as prescribed. No fever, chills, nausea, vomiting. Medication Reconciliation Allergies: Coded Allergies: ibuprofen (Verified Allergy, Unknown, CHEST PAIN, 04/10/25) naproxen (Verified Allergy, Unknown, 04/10/25) ziprasidone (Verified Allergy, Unknown, 04/10/25) Scheduled Acetaminophen (Tylenol), 1 TABLET PO Q4HPRN, (Reported) Aripiprazole* (Abilify*), 1 TAB PO DAILY, (Reported) Cefpodoxime Proxetil (Vantin), 1 TAB PO Q12H Ethynodiol D-Ethinyl Estradiol ([place] 1-35E Tablet), 1 TAB PO DAILY, (Reported) Fluoxetine Hcl (Prozac), 1 CAP PO QAM, (Reported) Gabapentin (Gabapentin), 1 CAP PO HS, (Reported) Hydrocodone/Acetaminophen ([place] 5-325 Tablet), 1 TAB PO TID PRN Lorazepam* (Ativan*), 1 TAB PO Q12H, (Reported) Metformin Hcl* (Glucophage*), 1 TAB PO Q12H, (Reported) Nitrofurantoin Monohyd/M-Cryst (Macrobid 100 mg Capsule), 1 CAP PO Q12H Nitrofurantoin Monohyd/M-Cryst (Macrobid 100 mg Capsule), 1 CAP PO Q12H Nitrofurantoin Monohyd/M-Cryst (Macrobid 100 mg Capsule), 1 CAP PO Q12H Ondansetron Hcl (Zofran), 1 TAB PO Q6H, (Reported) Pantoprazole Sodium (PROTONIX tablet), 1 TAB PO DAILY Phenazopyridine HCl (Pyridium), 1 TAB PO Q8H Prazosin Hcl (Minipress), 1 CAP PO HS, (Reported) Propranolol Hcl* (Inderal*), 1 TAB PO BID, (Reported) Risperidone (Risperidone), 1 TAB PO HS, (Reported) Sulfamethoxazole/Trimethoprim (Septra Ds Tab), 1 TAB PO Q12H Venlafaxine HCl (Effexor Xr), 1 CAP PO BID, (Reported) Venlafaxine Hcl (Effexor Xr), 1 CAP PO DAILY, (Reported) Past Medical History Past Medical History: No Pertinent History, Asthma, Chronic Pain, *PSYCH*, Anxiety, Depression, Psychosis, Schizophrenia Past Surgical History: no surgical history Smoking Status: Never smoker Alcohol Use: Rarely Drug Use: none Lives with: Mother Lives In: Home Occupation: student Review of Systems All Other Systems at this time: Reviewed and Negative Physical Exam Vital Signs: Temperature: 98.1, Source: Temporal, Heart Rate: 106, Respiratory Rate: 22, BP: 108/69, Pulse Oximetry: 99, Weight: 79.700 Oxygen Flow Rate: 0 Physical Exam GENERAL: Alert, MILD DISTRESS DUE TO PAIN. HEENT: NCAT, EOMI, PERRL, normal oropharynx, moist oral mucosa. NECK: Supple, trachea midline. CARDIAC: Regular rate and rhythm, no murmurs, rubs, or gallops. PV: Equal distal pulses. No lower extremity edema, cap refill less than 2 seconds. RESPIRATORY: Equal breath sounds, clear to auscultation bilaterally, no respiratory distress. GASTROINTESTINAL: Non distended, soft, nontender, No guarding or rebound. SUPRAPUBIC HOFFMAN IN PLACE HOFFMAN BAG CLEAR YELLOW. BACK: TTP OVER BILATERAL LEFT AND RIGHT FLANK AREA. NO TTP OVER SPINOUS PROCESSES. MUSCULOSKELETAL: Normal range of motion, nontender, no swelling. Normal gait. NEUROLOGICAL: Awake, alert, and oriented x 3. SKIN: Warm/dry, no pallor, no rash. PSYCH: Alert and appropriate. Affect congruent with mood. Speech is clear. Good eye contact. General Appearance: alert Progress Results/Orders Results/Orders Orders - OPPESHRUTHISAMIR T PA Ultrasound Kidney Non Vasc (04/10/25 16:34) Completed Orders - OPPESHRUTHISAMIR T PA Ultrasound Kidney Non Vasc (04/10/25 16:34) Normal Saline 1000ml (0.9% Sodium Chlori (04/10/25 16:35) Morphine 4mg/Ml Inj. (Morphine Inj.) (04/10/25 16:35) Ondansetron Inj. (Zofran 4mg/2ml Vial) (04/10/25 16:35) Vital Signs 04/10/25 04/10/25 04/10/25 14:31 15:40 15:44 Temp 98.1 Pulse 127 106 Resp 18 18 22 B/P (MAP) 124/79 108/69 (82) Pulse Ox 100 99 O2 Flow Rate 0 0 Laboratory Tests Test 04/10/25 14:37 04/10/25 15:02 Urine Specimen Description Hoffman cath Urine Color Yellow Urine Clarity Cloudy Urine pH 6.0 Urine Specific Gracey >=1.030 Urine Protein 100 H Urine Glucose (UA) Negative Urine Ketones Negative Urine Occult Blood Moderate H Urine Nitrite Negative Urine Bilirubin Negative Urine Urobilinogen 0.2 Urine Leukocyte Esterase Small H Urine RBC 3-10 Urine WBC Tntc H Urine Squamous Epithelial Cells Few Urine Transitional Epithelial Cells Few Urine Amorphous Urates 1+ Urine Bacteria 3+ Urine Yeast Moderate Urine Culture Indicated Indicated Volume Urine Centrifuged 10 ml Urine Comment White Blood Count 10.5 Red Blood Count 4.56 Hemoglobin 12.5 Hematocrit 36.9 Mean Corpuscular Volume 80.9 Mean Corpuscular Hemoglobin 27.3 Mean Corpuscular Hemoglobin Concent 33.8 Red Cell Distribution Width 16.2 H Platelet Count 307 Mean Platelet Volume 7.2 L Neutrophils (%) (Auto) 53.1 Lymphocytes (%) (Auto) 38.6 Monocytes (%) (Auto) 6.8 Eosinophils (%) (Auto) 1.2 Basophils (%) (Auto) 0.3 Neutrophils # (Auto) 5.6 Lymphocytes # (Auto) 4.1 Monocytes # (Auto) 0.7 Eosinophils # (Auto) 0.1 Basophils # (Auto) 0.0 CBC Comment Sodium Level 139 Potassium Level 4.3 Chloride Level 107 Carbon Dioxide Level 22.2 L Anion Gap 10 Blood Urea Nitrogen 11 Creatinine 0.96 H Estimated GFR/1.73 m2 69 BUN/Creatinine Ratio 11.5 Glucose Level 106 H Lactic Acid Level 0.9 Calcium Level 8.3 L Albumin 3.4 Procalcitonin < 0.05 Chemistry Comments Microbiology Date/Time Source Procedure Growth Status 04/10/25 16:28 Urine Hoffman Cath Urine Culture - Preliminary Culture received. Resulted 04/10/25 15:02 Blood Hand Left Blood Culture - Preliminary NEGATIVE (LESS THAN 24 HOURS) Resulted Medical Decision Making Differential Dx:Considerations: Include: AAA, -Complete, - Incomplete, -Inevitable, -Missed, -Threatened, Abruptio placentae, Angina/WA, Aortic dissection, Appendicitis, Bowel obstruction, Cholangitis, Cholelithasis, Constipation, Diverticular disease, Esophageal rupture, Esophagitis, Gastritis/PUD, Gastroenteritis, GI hemorrhage, Hernia, Hepatitis, Inflammatory BD, Ischemic bowel, Ovarian cyst/torsion, Pancreatitis, PID, Porphyria, Trauma, intraabdominal, Urinary obstruction, Urinary tract infection, Urolithiasis Additional Comments Patient's focus is her chronic flank pain that has increased from an 8/10 in severity which is her baseline to a 10/10 in severity. She is afebrile her white count is minimally increased from previous and she has been on antibiotics for less than 24 hours. I do not see any reason for admission at this point or a CT as antibiotics have not had enough time to work and afebrile. Departure Time of Disposition: 18:10 Disposition: 01 HOME / SELF CARE / HOMELESS Impression: Primary Impression: Acute urinary tract infection Additional Impressions: Hoffman catheter in place Acute on chronic back pain Condition: Stable Discharge Instructions: Acute Back Pain, Adult Additional Instructions: CONTINUE ANTIBIOTICS, IF FEVER OR ANY OTHER CONCERNING EMERGENT SYMPTOMS RETURN TO ER URINE CULTURE IS STILL PENDING Referrals: NO PRIMARY CARE PROVIDER (PCP) Education Educated: Patient Educated regarding: diagnosis, treatment, need for follow up Signature Scribe Signature: x Attestation: SAMIR Harris Apr 10, 2025 18:11
[2025-04-10] MEDS: ondansetron/PF 4mg/2ml inj IM ONE (18:14)
[2025-04-10] MEDS: morphine 4 MG/ML inj SYRINge IM ONE (18:15)
[2025-04-10 18:23] VITALS: BP 118/70; PULSE 101; RESP 18; O2SAT 99
== END 2025-04-10 18:24 | disposition home or self-care (01) ==
LOC: ER 14:31
DX: N39.0 Urinary tract infection, site not specified (principal); G89.29 Other chronic pain; M54.9 Dorsalgia, unspecified; J45.909 Unspecified asthma, uncomplicated; F41.9 Anxiety disorder, unspecified; F32.A Depression, unspecified; Z88.6 Allergy status to analgesic agent; Z88.8 Allergy status to other drugs, medicaments and biological substances; Z79.84 Long term (current) use of oral hypoglycemic drugs; Z79.899 Other long term (current) drug therapy
CPT/HCPCS: 36415; 71045; 76770; 80048; 81001; 83605; 84145; 85025; 87040; 87088; 96372; 99285; J2270; J2405; J7030; 87077; 87186; A6258

== ENCOUNTER 2025-04-23 08:19 | Emergency (ER) | payer MEDICAID ==
[~2025-04-23] VITALS: Ht 147.3 cm; Wt 80.1 kg
[~2025-04-23 08:19] MED LIST changes: -CEFP200T13 PO
[2025-04-23 08:32] VITALS: TEMP 97.4
[2025-04-23] MEDS: ondansetron/PF 4mg/2ml inj IV ONE (09:56)
[2025-04-23] MEDS: morphine 4 MG/ML inj SYRINge IV ONE (09:56)
[2025-04-23 09:58] LABS: LEUKOCYTE ESTERASE ,URINE MODERATE (Neg); NITRITES, URINE POSITIVE (Neg); OCCULT BLOOD,URINE LARGE (Neg)
[2025-04-23 10:00] LABS: MEAN PLATELET VOLUME 7.5 FL (7.4-10.4); RED CELL DISTRIBUTION WIDTH 16.1 % (11.5-14.5)
[2025-04-23 10:05] LABS: UA COLLECTION TYPE NON-SPECIFIED
[2025-04-23 10:07] LABS: MUCUS STRANDS NONE SEEN /LPF (Neg); SQUAMOUS EPITHELIAL CELL,UR FEW /LPF (FEW)
[2025-04-23 10:11] LABS: CREATININE 1.07 MG/DL (0.40-0.90); TOTAL CARBON DIOXIDE 30.7 MMOL/L (24-32); eCRCL 51 ML/MIN; eGFR 61 ML/MIN
--- NOTE | 2025-04-23 10:44 | Physician Documentation ---
History of Present Illness Chief Complaint: Urinary Symptoms Stated Complaint: BLADDER PAIN Time Seen by MD: 09:16 OK to notify your PCP?: Yes Primary Medical Doctor: Dr. Harris Source: patient Mode of Arrival: POV Exam Limitations: no limitations HPI 29-year-old female who is here with chronic abdominal pain stating that the Butrans patch that she was prescribed has not been helping. Suprapubic catheter draining normally. She reports she has chronic pain in this area and states his pain is no different from her baseline pain. She states that ever since she got off of Dilaudid which was about six weeks ago that the pain has not been well managed. She is currently pending getting in with a Suboxone clinic scheduled for May 02. She denies fever, chills, nausea, vomiting, diarrhea, chest pain, SOB. She states [facility] is aware of her symptoms. She gets her suprapubic catheter changed monthly. Medication Reconciliation Allergies: Coded Allergies: ibuprofen (Verified Allergy, Unknown, CHEST PAIN, 04/23/25) naproxen (Verified Allergy, Unknown, 04/23/25) ziprasidone (Verified Allergy, Unknown, 04/23/25) Scheduled Acetaminophen (Tylenol), 1 TABLET PO Q4HPRN, (Reported) Aripiprazole* (Abilify*), 1 TAB PO DAILY, (Reported) Ethynodiol D-Ethinyl Estradiol ([place] 1-35E Tablet), 1 TAB PO DAILY, (Reported) Fluoxetine Hcl (Prozac), 1 CAP PO QAM, (Reported) Gabapentin (Gabapentin), 1 CAP PO HS, (Reported) Hydrocodone/Acetaminophen ([place] 5-325 Tablet), 1 TAB PO TID PRN Lorazepam* (Ativan*), 1 TAB PO Q12H, (Reported) Metformin Hcl* (Glucophage*), 1 TAB PO Q12H, (Reported) Nitrofurantoin Monohyd/M-Cryst (Macrobid 100 mg Capsule), 1 CAP PO Q12H Nitrofurantoin Monohyd/M-Cryst (Macrobid 100 mg Capsule), 1 CAP PO Q12H Nitrofurantoin Monohyd/M-Cryst (Macrobid 100 mg Capsule), 1 CAP PO Q12H Ondansetron Hcl (Zofran), 1 TAB PO Q6H, (Reported) Pantoprazole Sodium (PROTONIX tablet), 1 TAB PO DAILY Phenazopyridine HCl (Pyridium), 1 TAB PO Q8H Prazosin Hcl (Minipress), 1 CAP PO HS, (Reported) Propranolol Hcl* (Inderal*), 1 TAB PO BID, (Reported) Risperidone (Risperidone), 1 TAB PO HS, (Reported) Sulfamethoxazole/Trimethoprim (Septra Ds Tab), 1 TAB PO Q12H Venlafaxine HCl (Effexor Xr), 1 CAP PO BID, (Reported) Venlafaxine Hcl (Effexor Xr), 1 CAP PO DAILY, (Reported) Discontinued Medications Cefpodoxime Proxetil (Vantin), 1 TAB PO Q12H Discontinued Reason: Auto Discontinued Past Medical History Past Medical History: No Pertinent History, Asthma, Chronic Pain, *PSYCH*, Anxiety, Depression, Psychosis, Schizophrenia Past Surgical History: other (nephrostomy tubes) Alcohol Use: Rarely Drug Use: none Lives with: Mother Lives In: Home Occupation: student Review of Systems All Other Systems at this time: Reviewed and Negative Physical Exam Vital Signs: Temperature: 97.4, Source: Oral, Heart Rate: 76, Respiratory Rate: 16, BP: 93/65, Pulse Oximetry: 98, Weight: 80.100 Oxygen Flow Rate: 0 Physical Exam GENERAL: Alert, no acute distress. HEENT: NCAT, EOMI, PERRL, normal oropharynx, moist oral mucosa. NECK: Supple, trachea midline. CARDIAC: Regular rate and rhythm, no murmurs, rubs, or gallops. Equal distal pulses. No lower extremity edema, cap refill less than 2 seconds. RESPIRATORY: Equal breath sounds, clear to auscultation bilaterally, no respiratory distress. GASTROINTESTINAL: Non distended, soft, nontender, No guarding or rebound. MUSCULOSKELETAL: Normal range of motion, nontender, no swelling. Normal gait. NEUROLOGICAL: Awake, alert, and oriented x 3. SKIN: Warm/dry, no pallor, no rash. PSYCH: Alert and appropriate. Affect congruent with mood. Speech is clear. Good eye contact. Progress Results/Orders Reviewed/noted all lab results: Yes Results/Orders Orders - SAMIR DE LA ROSA Cult Urine + [place] [address] (04/23/25 10:07) Completed Orders - SAMIR DE LA ROSA Cbc/Diff (04/23/25 09:38) BMP (04/23/25 09:38) Morphine 4mg/Ml Inj. (Morphine Inj.) (04/23/25 09:40) Ondansetron Inj. (Zofran 4mg/2ml Vial) (04/23/25 09:40) Ua W/Microscopic, Cult If Ind (04/23/25 09:45) Medications Received in ER Medications (Trade) Dose Ordered Sig/Machelle Route PRN Reason Start Time Stop Time Status Last Admin Dose Admin (morphine inj.) 6 mg ONCE ONCE IV 04/23/25 09:40 04/23/25 09:41 DC 04/23/25 09:56 6 MG (Zofran 4mg/2ml vial) 4 mg ONCE ONCE IV 04/23/25 09:40 04/23/25 09:41 DC 04/23/25 09:56 4 MG Vital Signs 04/23/25 04/23/25 04/23/25 04/23/25 08:32 08:56 09:00 09:56 Temp 97.4 Pulse 100 88 Resp 18 20 16 16 B/P (MAP) 108/69 102/65 (77) Pulse Ox 97 98 O2 Flow Rate 0 04/23/25 10:00 Pulse 76 Resp 16 B/P (MAP) 93/65 (74) Pulse Ox 98 Laboratory Tests Test 04/23/25 09:35 04/23/25 09:45 White Blood Count 10.5 Red Blood Count 4.73 Hemoglobin 12.9 Hematocrit 38.9 Mean Corpuscular Volume 82.2 Mean Corpuscular Hemoglobin 27.2 Mean Corpuscular Hemoglobin Concent 33.1 Red Cell Distribution Width 16.1 H Platelet Count 328 Mean Platelet Volume 7.5 Neutrophils (%) (Auto) 53.4 Lymphocytes (%) (Auto) 38.7 Monocytes (%) (Auto) 6.3 Eosinophils (%) (Auto) 1.1 Basophils (%) (Auto) 0.5 Neutrophils # (Auto) 5.6 Lymphocytes # (Auto) 4.1 Monocytes # (Auto) 0.7 Eosinophils # (Auto) 0.1 Basophils # (Auto) 0.0 CBC Comment Sodium Level 141 Potassium Level 4.0 Chloride Level 104 Carbon Dioxide Level 30.7 Anion Gap 6 L Blood Urea Nitrogen 10 Creatinine 1.07 H Estimated GFR/1.73 m2 61 BUN/Creatinine Ratio 9.3 L Glucose Level 87 Calcium Level 9.0 Albumin 3.5 Chemistry Comments Urine Specimen Description Non-specified Urine Color Yellow Urine Clarity Cloudy Urine pH 6.5 Urine Specific [place] 1.025 Urine Protein >=300 H Urine Glucose (UA) 100 H Urine Ketones Trace H Urine Occult Blood Large H Urine Nitrite Positive H Urine Bilirubin Negative Urine Urobilinogen 2.0 H Urine Leukocyte Esterase Moderate H Urine RBC 50-100 Urine WBC Tntc H Urine Squamous Epithelial Cells Few Urine Bacteria 4+ Urine Mucus None seen Urine Culture Indicated Indicated Volume Urine Centrifuged 10 ml Urine Comment Re-Evaluation Re-Evaluation : Re-Evaluation Time: 10:45 Re-Evaluation: Resolved Progress PAIN RESOLVED AFTER 6MG OF MORPHINE IV DISCUSSED PLAN FOR DISCHARGE, PATIENT AGREES WITH PLAN Medical Decision Making Additional information obtaine: old records Findings PREVIOUS RECORDS FROM PREVIOUS VISITS INCLUDING PREVIOUS URINE CULTURES Differential Dx:Considerations: Bowel obstruction, Constipation, Gastritis/PUD, Gastroenteritis, Hernia, Ovarian cyst/torsion, Trauma, intraabdominal, Urinary obstruction, Urinary tract infection, Urolithiasis, Other Departure Time of Disposition: 10:45 Disposition: 01 HOME / SELF CARE / HOMELESS Impression: Primary Impression: Chronic abdominal pain Additional Impressions: Suprapubic catheter UTI (urinary tract infection) due to urinary indwelling catheter Qualified Codes: T83.511A - Infection and inflammatory reaction due to indwelling urethral catheter, initial encounter; N39.0 - Urinary tract infection, site not specified Condition: Stable Discharge Instructions: General Discharge Instructions Additional Instructions: YOUR URINE TEST HERE DOES SHOW BACTERIA; I AM QUESTIONING IF YOUR SYMPTOMS ARE DUE TO THIS, BUT UNFORTUNATELY I STILL WILL NEED TO PRESCRIBE YOU AN ANTIBIOTIC GIVEN YOUR SUPRAPUBIC CATHETER AND RISK FOR WORSENING OF INFECTION. I DO SUSPECT YOU MAY BE CHRONICALLY COLONIZED. IF YOU HAVE NOT CHANGED YOUR CATHETER RECENTLY, I DO RECOMMEND THAT YOU CHANGE YOUR CATHETER. IF YOU HAVE FEVER, CHILLS, NAUSEA, VOMITING OR ANY UNUSUAL SYMPTOMS YOU NEED TO RETURN TO ER IMMEDIATELY. [facility] HAS SAME DAY APPOINTMENTS FOR SUBOXONE FRIDAY THROUGH FRIDAY. Referrals: NO PRIMARY CARE PROVIDER (PCP) Prescriptions Sulfamethoxazole/Trimethoprim (Bactrim Ds Tablet) 800 Mg-160 Mg Tablet 1 TAB PO Q12H for 7 Days, #14 TAB Prov: SAMIR DE LA ROSA 04/23/25 Education Educated: Patient Educated regarding: diagnosis, treatment, need for follow up Signature Scribe Signature: X Attestation: SAMIR KABA Apr 23, 2025 10:44
[2025-04-23] MEDS ORDERED: SULF1TAB49 PO (10:50)
[2025-04-23 11:00] VITALS: BP 101/68; PULSE 78; RESP 16; O2SAT 99
== END 2025-04-23 11:03 | disposition home or self-care (01) ==
LOC: ER 08:20
DX: N39.0 Urinary tract infection, site not specified (principal); G89.29 Other chronic pain; R10.9 Unspecified abdominal pain; J45.909 Unspecified asthma, uncomplicated; F41.9 Anxiety disorder, unspecified; F32.A Depression, unspecified; F20.9 Schizophrenia, unspecified; Z88.8 Allergy status to other drugs, medicaments and biological substances; Z79.899 Other long term (current) drug therapy
CPT/HCPCS: 36415; 80048; 81001; 85025; 87077; 87088; 87186; 96374; 96375; 99284; J2270; J2405

== ENCOUNTER 2025-04-23 16:54 | Emergency (ER) | payer MEDICAID ==
[~2025-04-23] VITALS: Ht 147.3 cm; Wt 80.3 kg
[~2025-04-23 16:54] MED LIST changes: +SULF1TAB49 PO
--- NOTE | 2025-04-23 18:31 | RADIOLOGY REPORT ---
EXAM: DI ABDOMEN,SINGLE VIEW(KUB) HISTORY: confirm suprapubic catheter placement COMPARISON: US ULTRASOUND KIDNEY NON VASC on DOS: 04/10/25 TECHNIQUE: Supine view of the abdomen FINDINGS/IMPRESSION: Nonobstructive bowel gas pattern noted. There is no evidence for pneumoperitoneum. No abnormal calcifications noted. Rectal tube in place.
[2025-04-23] MEDS: ondansetron/PF 4mg/2ml inj IV ONE (19:10)
--- NOTE | 2025-04-23 19:10 | Physician Documentation ---
History of Present Illness ~ Chief Complaint: Urinary Symptoms Stated Complaint: BLADDER PAIN Time Seen by MD: 17:15 Primary Medical Doctor: Dr. Harris Source: patient Mode of Arrival: Ambulatory Exam Limitations: no limitations HPI 29-year-old female with chronic abdominal pain here for worsening of her abdominal pain. This is patient's 2nd visit to the emergency room today. Patient's pain improved after she received morphine 6 mg IV this morning and she is back since the pain has returned. She is on a Butrans patch which she states she has been on for a few weeks now but states this does nothing. Prior to the Butrans patch she was on Dilaudid and this did treat her pain but she is unable to get this anymore. She was referred to a Suboxone clinic but states she is not able to be seen for two weeks. No fever, chills, diarrhea, constipation. Medication Reconciliation Allergies: Coded Allergies: ibuprofen (Verified Allergy, Unknown, CHEST PAIN, 04/23/25) naproxen (Verified Allergy, Unknown, 04/23/25) ziprasidone (Verified Allergy, Unknown, 04/23/25) Scheduled Acetaminophen (Tylenol), 1 TABLET PO Q4HPRN, (Reported) Aripiprazole* (Abilify*), 1 TAB PO DAILY, (Reported) Ethynodiol D-Ethinyl Estradiol ([place] 1-35E Tablet), 1 TAB PO DAILY, (Reported) Fluoxetine Hcl (Prozac), 1 CAP PO QAM, (Reported) Gabapentin (Gabapentin), 1 CAP PO HS, (Reported) Hydrocodone/Acetaminophen ([place] 5-325 Tablet), 1 TAB PO TID PRN Lorazepam* (Ativan*), 1 TAB PO Q12H, (Reported) Metformin Hcl* (Glucophage*), 1 TAB PO Q12H, (Reported) Nitrofurantoin Monohyd/M-Cryst (Macrobid 100 mg Capsule), 1 CAP PO Q12H Nitrofurantoin Monohyd/M-Cryst (Macrobid 100 mg Capsule), 1 CAP PO Q12H Nitrofurantoin Monohyd/M-Cryst (Macrobid 100 mg Capsule), 1 CAP PO Q12H Ondansetron Hcl (Zofran), 1 TAB PO Q6H, (Reported) Pantoprazole Sodium (PROTONIX tablet), 1 TAB PO DAILY Phenazopyridine HCl (Pyridium), 1 TAB PO Q8H Prazosin Hcl (Minipress), 1 CAP PO HS, (Reported) Propranolol Hcl* (Inderal*), 1 TAB PO BID, (Reported) Risperidone (Risperidone), 1 TAB PO HS, (Reported) Sulfamethoxazole/Trimethoprim (Septra Ds Tab), 1 TAB PO Q12H Sulfamethoxazole/Trimethoprim (Bactrim Ds Tablet), 1 TAB PO Q12H Venlafaxine HCl (Effexor Xr), 1 CAP PO BID, (Reported) Venlafaxine Hcl (Effexor Xr), 1 CAP PO DAILY, (Reported) Discontinued Medications Cefpodoxime Proxetil (Vantin), 1 TAB PO Q12H Discontinued Reason: Auto Discontinued Past Medical History Past Medical History: No Pertinent History, Asthma, Chronic Pain, *PSYCH*, Anxiety, Depression, Psychosis, Schizophrenia Past Surgical History: other Alcohol Use: Rarely Drug Use: none Lives with: Mother Lives In: Home Occupation: student Review of Systems All Other Systems at this time: Reviewed and Negative Physical Exam Vital Signs: Temperature: 97.6, Source: Temporal, Heart Rate: 105, Respiratory Rate: 16, BP: 125/80, Pulse Oximetry: 97, Weight: 80.300 Oxygen Flow Rate: 0 Physical Exam General Appearance: Alert, WD/WN. NAD. HEENT: NCAT, PERRL, EOMI. Neck: Supple, trachea midline. Cardiovascular: RRR. No m/r/g. Lungs: CTAB. Breathing unlabored Abdomen: Soft, nondistended, Suprapubic catheter in place at suprapubic area, draining, Joe bag contains clear yellow urine Extremities: Normal inspection. No edema. Skin: Warm/dry, normal color Neurological: Alert and oriented x4, normal gait. Psychiatric: Affect congruent with mood. Procedures Procedures Suprapubic catheter was removed and replaced with a new suprapubic catheter, KUB was performed after this which showed catheter placement correct Progress Results/Orders Results/Orders Orders - SAMIR DE LA ROSA General Nursing Order (04/23/25 17:26) Abdomen,Single View(Kub) (04/23/25 17:48) Completed Orders - SAMIR DE LA ROSA Morphine 4mg/Ml Inj. (Morphine Inj.) (04/23/25 17:30) Ondansetron Inj. (Zofran 4mg/2ml Vial) (04/23/25 17:30) Abdomen,Single View(Kub) (04/23/25 17:48) Vital Signs 04/23/25 04/23/25 04/23/25 04/23/25 17:01 17:18 18:00 19:12 Temp 97.6 Pulse 116 105 Resp 16 16 16 B/P (MAP) 106/75 125/80 (95) Pulse Ox 96 97 O2 Flow Rate 0 0 04/23/25 19:24 Temp 98.6 Pulse 99 Resp 18 B/P (MAP) 124/78 Pulse Ox 99 Medical Decision Making Additional information obtaine: old records Findings [facility] records and ER records here Urinary Diff Dx:Considerations: Include: AAA, , Aortic dissection, Appendicitis, Bowel obstruction, Cholelithiasis, Choleangitis, DJD, Ectopic , Hepatitis, HNP, Impaction, Intrauterine , Musculoskeletal pain, Ovarian torsion, Pancreatitis, PID, Post-Op complication, Pyelonephritis, Renal failure, Strain, Urinary Obstruction, Urolithiasis, Urinary retention, UTI, Vaginitis Genital Diff Dx:Considerations: Unlikely: Other Departure Time of Disposition: 15:35 Disposition: 01 HOME / SELF CARE / HOMELESS Impression: Primary Impression: Chronic abdominal pain Condition: Stable Discharge Instructions: General Discharge Instructions Additional Instructions: F/U WITH PRIMARY CARE PROVIDER FOR CHRONIC ABDOMINAL PAIN MANAGEMENT STATED EARLIER, RENEWED LIFE WOULD BE SOMETHING TO LOOK INTO DUE TO YOUR OPIATE DEPENDENCE Antibiotic was prescribed at your visit earlier today however you report you did not pick this up and that has good because actually do not want you to take this. I was able to do more research into your visits at [facility] and I do see notes regarding how it has been strongly recommended not to prescribe you any antibiotics due to colonization and if antibiotics are to be prescribed should be under your infectious disease specialist Dr. Waters. Your symptoms do not appear to change with the you are on antibiotics to treat a UTI or not and this your symptoms are unlikely related to a UTI in your bacteria in your urine is likely from colonization rather than symptomatic infection but again follow up with [facility] and Dr. Waters. If however you experience a fever then return to the ER Referrals: NO PRIMARY CARE PROVIDER (PCP) Education Educated: Patient, Family Educated regarding: diagnosis, treatment, need for follow up Signature Scribe Signature: x Attestation: SAMIR Harris Apr 23, 2025 19:10
[2025-04-23] MEDS: morphine 4 MG/ML inj SYRINge IV ONE (19:12)
[2025-04-23 19:24] VITALS: BP 124/78; PULSE 99; RESP 18; TEMP 98.6; O2SAT 99
== END 2025-04-23 19:30 | disposition home or self-care (01) ==
LOC: ER 16:54
DX: G89.29 Other chronic pain (principal); R10.9 Unspecified abdominal pain; J45.909 Unspecified asthma, uncomplicated; F41.9 Anxiety disorder, unspecified; F32.A Depression, unspecified; F20.9 Schizophrenia, unspecified; Z88.8 Allergy status to other drugs, medicaments and biological substances; Z79.899 Other long term (current) drug therapy
CPT/HCPCS: 51705; 74018; 99284; J2270; J2405; 96374; 96375; A4314; A4338; A4358

== ENCOUNTER 2025-05-01 16:59 | Emergency (ER) | payer MEDICAID ==
[~2025-05-01] VITALS: Ht 147.3 cm; Wt 79.0 kg
[2025-05-01 17:50] LABS: MEAN PLATELET VOLUME 7.3 FL (7.4-10.4); RED CELL DISTRIBUTION WIDTH 16.3 % (11.5-14.5)
[2025-05-01 18:03] LABS: CREATININE 0.87 MG/DL (0.40-0.90); TOTAL CARBON DIOXIDE 24.7 MMOL/L (24-32); eCRCL 62 ML/MIN; eGFR 78 ML/MIN
[2025-05-01 18:28] LABS: LEUKOCYTE ESTERASE ,URINE LARGE (Neg); NITRITES, URINE POSITIVE (Neg); OCCULT BLOOD,URINE TRACE-INTACT (Neg)
[2025-05-01 18:30] LABS: URINE HCG NEGATIVE (NEG)
[2025-05-01 18:33] VITALS: RESP 18
--- NOTE | 2025-05-01 18:34 | Physician Documentation ---
History of Present Illness ~ Chief Complaint: Urinary Symptoms Stated Complaint: UTI SYMPTOMS Time Seen by MD: 17:55 Primary Medical Doctor: Dr. Harris Source: patient Mode of Arrival: POV, Ambulatory Exam Limitations: no limitations HPI 29-year-old female with neurogenic bladder here due to acute on chronic pain over her bladder. Patient has a suprapubic catheter and has chronic infections upon collection of her urine. She has been told by her infectious disease specialists not to treat the bladder infections unless patient has a fever or a higher than usual WBC . Patient's only symptom today is her worsening of her chronic suprapubic pain and nausea which is also chronic. Patient is scheduled with a Suboxone clinic to get started on Suboxone tomorrow. The only thing that treated her pain was when she was on Dilaudid she has had a tremendous amount of Botox injections into her bladder and states these never helped. She is hopeful that is Suboxone will help. No fever, chills, problems with suprapubic catheter draining, vomiting, diarrhea, constipation. Last Menstrual Period: May 16, 2024 Medication Reconciliation Allergies: Coded Allergies: ibuprofen (Verified Allergy, Unknown, CHEST PAIN, 05/01/25) naproxen (Verified Allergy, Unknown, 05/01/25) ziprasidone (Verified Allergy, Unknown, 05/01/25) Scheduled Acetaminophen (Tylenol), 1 TABLET PO Q4HPRN, (Reported) Aripiprazole* (Abilify*), 1 TAB PO DAILY, (Reported) Ethynodiol D-Ethinyl Estradiol ([place]ovia 1-35E Tablet), 1 TAB PO DAILY, (Reported) Fluoxetine Hcl (Prozac), 1 CAP PO QAM, (Reported) Gabapentin (Gabapentin), 1 CAP PO HS, (Reported) Hydrocodone/Acetaminophen ([place] 5-325 Tablet), 1 TAB PO TID PRN Lorazepam* (Ativan*), 1 TAB PO Q12H, (Reported) Metformin Hcl* (Glucophage*), 1 TAB PO Q12H, (Reported) Nitrofurantoin Monohyd/M-Cryst (Macrobid 100 mg Capsule), 1 CAP PO Q12H Nitrofurantoin Monohyd/M-Cryst (Macrobid 100 mg Capsule), 1 CAP PO Q12H Nitrofurantoin Monohyd/M-Cryst (Macrobid 100 mg Capsule), 1 CAP PO Q12H Ondansetron Hcl (Zofran), 1 TAB PO Q6H, (Reported) Pantoprazole Sodium (PROTONIX tablet), 1 TAB PO DAILY Phenazopyridine HCl (Pyridium), 1 TAB PO Q8H Prazosin Hcl (Minipress), 1 CAP PO HS, (Reported) Propranolol Hcl* (Inderal*), 1 TAB PO BID, (Reported) Risperidone (Risperidone), 1 TAB PO HS, (Reported) Sulfamethoxazole/Trimethoprim (Septra Ds Tab), 1 TAB PO Q12H Venlafaxine HCl (Effexor Xr), 1 CAP PO BID, (Reported) Venlafaxine Hcl (Effexor Xr), 1 CAP PO DAILY, (Reported) Discontinued Medications Sulfamethoxazole/Trimethoprim (Bactrim Ds Tablet), 1 TAB PO Q12H Discontinued Reason: Auto Discontinued Past Medical History Past Medical History: No Pertinent History, Asthma, Chronic Pain, *PSYCH*, Anxiety, Depression, Psychosis, Schizophrenia Past Surgical History: other Last Menstrual Period: May 16, 2024 Alcohol Use: Rarely Drug Use: none Lives with: Mother Lives In: Home Occupation: student Review of Systems All Other Systems at this time: Reviewed and Negative Physical Exam Vital Signs: Temperature: 97.7, Source: Temporal, Heart Rate: 98, Respiratory Rate: 16, BP: 113/76, Pulse Oximetry: 99, Weight: 79.000 Oxygen Flow Rate: 0 Physical Exam General Appearance: Alert, WD/WN. NAD. HEENT: NCAT, PERRL, EOMI. Neck: Supple, trachea midline. Cardiovascular: RRR. No m/r/g. Lungs: CTAB. Breathing unlabored Abdomen: Soft, nondistended no peritoneal signs tenderness over suprapubic area, suprapubic catheter in place draining Extremities: Normal inspection. No edema. Skin: Warm/dry, normal color Neurological: Alert and oriented x4, normal gait. Psychiatric: Affect congruent with mood. Progress Results/Orders Results/Orders Vital Signs 05/01/25 05/01/25 05/01/25 17:13 18:07 18:33 Temp 97.7 Pulse 98 93 Resp 18 16 18 B/P (MAP) 113/76 108/73 (85) Pulse Ox 99 97 O2 Flow Rate 0 Laboratory Tests Test 05/01/25 17:16 05/01/25 17:38 Urine Specimen Description Cln catch midstream Urine Color Yellow Urine Clarity Clear Urine pH 7.0 Urine Specific [place] 1.020 Urine Protein Trace Urine Glucose (UA) Negative Urine Ketones Negative Urine Occult Blood Trace-intact Urine Nitrite Positive H Urine Bilirubin Negative Urine Urobilinogen 0.2 Urine Leukocyte Esterase Large H Urine RBC 0-2 Urine WBC 10-20 H Urine Squamous Epithelial Cells Few Urine Bacteria 2+ Urine Culture Indicated Indicated Volume Urine Centrifuged 10 ml Urine HCG, Qualitative Negative Urine Comment White Blood Count 11.8 H Red Blood Count 4.93 Hemoglobin 13.5 Hematocrit 40.6 Mean Corpuscular Volume 82.4 Mean Corpuscular Hemoglobin 27.4 Mean Corpuscular Hemoglobin Concent 33.3 Red Cell Distribution Width 16.3 H Platelet Count 335 Mean Platelet Volume 7.3 L Neutrophils (%) (Auto) 59.7 Lymphocytes (%) (Auto) 34.3 Monocytes (%) (Auto) 4.5 Eosinophils (%) (Auto) 0.9 Basophils (%) (Auto) 0.6 Neutrophils # (Auto) 7.0 Lymphocytes # (Auto) 4.0 Monocytes # (Auto) 0.5 Eosinophils # (Auto) 0.1 Basophils # (Auto) 0.1 CBC Comment Sodium Level 139 Potassium Level 4.5 Chloride Level 106 Carbon Dioxide Level 24.7 Anion Gap 8 Blood Urea Nitrogen 8 Creatinine 0.87 Estimated GFR/1.73 m2 78 BUN/Creatinine Ratio 9.2 L Glucose Level 96 Calcium Level 8.6 Total Bilirubin 0.5 Aspartate Amino Transf (AST/SGOT) 12 Alanine Aminotransferase (ALT/SGPT) 10 L Alkaline Phosphatase 90 Total Protein 8.5 H Albumin 3.8 Globulin 4.7 H Albumin/Globulin Ratio 0.8 L Lipase 45 Chemistry Comments Medical Decision Making Additional information obtaine: N/A Findings n/a Urinary Diff Dx:Considerations: Include: AAA, , Aortic dissection, Appendicitis, Bowel obstruction, Cholelithiasis, Choleangitis, DJD, Ectopic , Hepatitis, HNP, Impaction, Intrauterine , Musculoskeletal pain, Ovarian torsion, Pancreatitis, PID, Post-Op complication, Pyelonephritis, Renal failure, Strain, Urinary Obstruction, Urolithiasis, Urinary retention, UTI, Vaginitis Genital Diff Dx:Considerations: Unlikely: Other Departure Time of Disposition: 18:57 Disposition: 01 HOME / SELF CARE / HOMELESS Impression: Primary Impression: Chronic bladder pain Additional Impression: Neurogenic bladder Condition: Stable Discharge Instructions: General Discharge Instructions Additional Instructions: Your urine does show bacteria but as you are aware we are not supposed to treat this as you are chronically colonized in your afebrile, do not have any symptoms out of your normal that would suggest that this is anything different than you have been going through. You need to follow up with the Suboxone clinic tomorrow to get started on Suboxone as planned. We can not give you any narcotics here since you are planning to get on Suboxone tomorrow as this would be a contraindication. Referrals: NO PRIMARY CARE PROVIDER (PCP) Education Educated: Patient Educated regarding: diagnosis, treatment, need for follow up Signature Scribe Signature: x Attestation: SAMIR Harris May 01, 2025 18:34
[2025-05-01 18:36] LABS: UA COLLECTION TYPE CLN CATCH MIDSTREAM
[2025-05-01 18:42] LABS: SQUAMOUS EPITHELIAL CELL,UR FEW /LPF (FEW)
[2025-05-01 19:25] VITALS: BP 108/48; PULSE 78; TEMP 98.1; O2SAT 99
== END 2025-05-01 19:29 | disposition home or self-care (01) ==
LOC: ER 16:59
DX: R39.82 Chronic bladder pain (principal); N31.9 Neuromuscular dysfunction of bladder, unspecified; F41.9 Anxiety disorder, unspecified; F32.A Depression, unspecified; F20.9 Schizophrenia, unspecified; Z88.6 Allergy status to analgesic agent; Z88.8 Allergy status to other drugs, medicaments and biological substances; Z79.899 Other long term (current) drug therapy
CPT/HCPCS: 36415; 80053; 81001; 81025; 83690; 85025; 87077; 87088; 87186; 99283

== ENCOUNTER 2025-05-06 15:08 | Emergency (ER) | payer MEDICAID ==
[~2025-05-06] VITALS: Ht 147.3 cm; Wt 81.2 kg
[~2025-05-06 15:08] MED LIST changes: -SULF1TAB49 PO
[2025-05-06 15:26] VITALS: BP 108/62; PULSE 113; TEMP 98.6; O2SAT 97
--- NOTE | 2025-05-06 15:35 | Physician Documentation ---
History of Present Illness Chief Complaint: See Chief Complaint Stated Complaint: CONFUSION OK to notify your PCP?: Yes Primary Medical Doctor: Dr. Harris Mode of Arrival: POV Exam Limitations: no limitations HPI MSE: Is a 29-year-old female that presents to the emergency department for evaluation of dyskinesia like activity. Patient reports he was recently started on Seroquel and naltrexone. Patient reports he has a significant psychiatric history and takes other medications. Patient denies any other symptoms at this time no fever chills nausea vomiting diarrhea headaches dizziness chest pain shortness of breath. Patient reports that she called the office of the psychiatrist who prescribed the medications for her they were unsure with the symptoms or related to. She is reporting to the emergency department for evaluation of the symptoms. Medication Reconciliation Allergies: Coded Allergies: ibuprofen (Verified Allergy, Unknown, CHEST PAIN, 05/06/25) naproxen (Verified Allergy, Unknown, 05/06/25) ziprasidone (Verified Allergy, Unknown, 05/06/25) Scheduled Acetaminophen (Tylenol), 1 TABLET PO Q4HPRN, (Reported) Aripiprazole* (Abilify*), 1 TAB PO DAILY, (Reported) Ethynodiol D-Ethinyl Estradiol (Zovia 1-35E Tablet), 1 TAB PO DAILY, (Reported) Fluoxetine Hcl (Prozac), 1 CAP PO QAM, (Reported) Gabapentin (Gabapentin), 1 CAP PO HS, (Reported) Hydrocodone/Acetaminophen ([place] 5-325 Tablet), 1 TAB PO TID PRN Lorazepam* (Ativan*), 1 TAB PO Q12H, (Reported) Metformin Hcl* (Glucophage*), 1 TAB PO Q12H, (Reported) Nitrofurantoin Monohyd/M-Cryst (Macrobid 100 mg Capsule), 1 CAP PO Q12H Nitrofurantoin Monohyd/M-Cryst (Macrobid 100 mg Capsule), 1 CAP PO Q12H Nitrofurantoin Monohyd/M-Cryst (Macrobid 100 mg Capsule), 1 CAP PO Q12H Ondansetron Hcl (Zofran), 1 TAB PO Q6H, (Reported) Pantoprazole Sodium (PROTONIX tablet), 1 TAB PO DAILY Phenazopyridine HCl (Pyridium), 1 TAB PO Q8H Prazosin Hcl (Minipress), 1 CAP PO HS, (Reported) Propranolol Hcl* (Inderal*), 1 TAB PO BID, (Reported) Risperidone (Risperidone), 1 TAB PO HS, (Reported) Sulfamethoxazole/Trimethoprim (Septra Ds Tab), 1 TAB PO Q12H Venlafaxine HCl (Effexor Xr), 1 CAP PO BID, (Reported) Venlafaxine Hcl (Effexor Xr), 1 CAP PO DAILY, (Reported) Discontinued Medications Sulfamethoxazole/Trimethoprim (Bactrim Ds Tablet), 1 TAB PO Q12H Discontinued Reason: Auto Discontinued Past Medical History Past Medical History: No Pertinent History, Asthma, Chronic Pain, *PSYCH*, Anxiety, Depression, Psychosis, Schizophrenia Past Surgical History: other Alcohol Use: Rarely Drug Use: none Lives with: Mother Lives In: Home Occupation: student Physical Exam Vital Signs: Temperature: 98.6, Source: Temporal, Heart Rate: 113, Respiratory Rate: 16, BP: 108/62, Pulse Oximetry: 97, Weight: 81.200 Oxygen Flow Rate: 0 Pulse Oximetry Reflects: adequate oxygenation General Appearance: alert, WD/WN, no apparent distress Neurologic The patient gets frequent tremors of the extremities. The come and go without obvious provocation. They are not constant. No focal neuro deficits. Cranial nerves 2-12 grossly intact. Progress Results/Orders Reviewed/noted all lab results: Yes Results/Orders Vital Signs 05/06/25 15:26 Temp 98.6 Pulse 113 Resp 16 B/P (MAP) 108/62 Pulse Ox 97 O2 Flow Rate 0 Medical Decision Making Additional information obtaine: N/A Findings The patient has workup was all within normal limits self in the urinalysis which the patient states that has normal for her. She has chronic interstitial cystitis which he has been treated him with the Suboxone for pain which he states that has working well. The patient is on multiple psych medications which I believe that has probably triggering of the this episode of tremors. The patient has had this before and states Ativan helped her symptoms. I gave the patient 2 mg p.o. Ativan which seems to have arrested her tremors. I will send her home with a small amount of Ativan for now he would with the weekend so she can follow up with the primary care physician who initially prescribed all these medications to discuss adjustments potentially. Differential Dx:Considerations: Other (Adverse medication reaction. Myoclonus. Tremors.) Departure Disposition: HOME / SELF CARE / HOMELESS Impression: Primary Impression: Tremor due to multiple drugs Condition: Stable Discharge Instructions: Tremor Additional Instructions: Take the Ativan as needed for the tremors. Follow up with the primary care physician or whoever prescribe these medications next week. Return to the ER for any worsening or concerning symptoms. Referrals: NO PRIMARY CARE PROVIDER (PCP) Prescriptions Lorazepam (Ativan) 1 Mg Tablet 1 TAB PO Q8H for tremors, #10 TAB 0 Refills Prov: KERRY MOJICA 05/06/25 Signature Scribe Signature: No scribe Attestation: The note accurately reflects work and decisions made by me.Kerry PADGETT 05/06/25 17:42 DEANGELO EPPS May 06, 2025 15:35 KERRY MOJICA May 06, 2025 17:42
[2025-05-06 16:29] LABS: MEAN PLATELET VOLUME 7.7 FL (7.4-10.4); RED CELL DISTRIBUTION WIDTH 15.8 % (11.5-14.5)
[2025-05-06 16:34] LABS: LEUKOCYTE ESTERASE ,URINE MODERATE (Neg); NITRITES, URINE POSITIVE (Neg); OCCULT BLOOD,URINE LARGE (Neg); URINE HCG NEGATIVE (NEG)
[2025-05-06 16:36] LABS: UA COLLECTION TYPE FOLEY CATH
[2025-05-06 16:43] LABS: SQUAMOUS EPITHELIAL CELL,UR FEW /LPF (FEW)
[2025-05-06 16:44] LABS: CREATININE 0.95 MG/DL (0.40-0.90); TOTAL CARBON DIOXIDE 25.2 MMOL/L (24-32); eCRCL 57 ML/MIN; eGFR 70 ML/MIN
[2025-05-06 16:44] LABS: MUCUS STRANDS FEW /LPF (Neg)
[2025-05-06 16:45] LABS: URINE AMPHETAMINE SCREEN NEGATIVE (Neg); URINE BARBITUATE SCREEN NEGATIVE (Neg); URINE BENZODIAZEPINES SCREEN NEGATIVE (Neg); URINE CANNABINOID SCREEN NEGATIVE (Neg); URINE COCAINE SCREEN NEGATIVE (Neg); URINE METHADONE SCREEN NEGATIVE (Neg); URINE OPIATE SCREEN NEGATIVE (Neg); URINE PHENCYCLIDINE SCREEN NEGATIVE (Neg)
[2025-05-06 17:12] VITALS: RESP 18
[2025-05-06] MEDS ORDERED: LORA-269 PO (17:41)
== END 2025-05-06 17:59 | disposition home or self-care (01) ==
LOC: ER 15:10
DX: G25.1 Drug-induced tremor (principal); Z88.6 Allergy status to analgesic agent; Z88.8 Allergy status to other drugs, medicaments and biological substances; Z79.899 Other long term (current) drug therapy
CPT/HCPCS: 36415; 80053; 80305; 81001; 81025; 82607; 85025; 87077; 87088; 87186; 99283

== ENCOUNTER 2025-05-07 11:28 | Emergency (ER) | payer MEDICAID ==
[~2025-05-07] VITALS: Ht 147.3 cm; Wt 80.3 kg
[~2025-05-07 11:28] MED LIST changes: +LORA-269 PO
[2025-05-07 11:42] VITALS: TEMP 97.4
--- NOTE | 2025-05-07 14:19 | Physician Documentation ---
History of Present Illness ~ General Chief Complaint: See Chief Complaint Stated Complaint: TREMORS Time Seen by MD: 13:14 OK to notify your PCP?: Yes Primary Medical Doctor: Cam Walsh [facility] Source: patient Mode of Arrival: POV Exam Limitations: no limitations History of Present Illness Initial Comments 29-year-old female who is here due to tremors that she states is all over her body and started a week ago. She got started on Suboxone on Friday, six days ago, and states that the symptoms started shortly after this. She states she informed the clinic who is prescribing her the Suboxone and they told her it was not related. She was then thinking that it could be due to her Seroquel so she discontinued the Seroquel but she states her symptoms have persisted. She denies any other symptoms other than tremors. She denies nausea, vomiting, diarrhea, fevers, chills. Medication Reconciliation Allergies: Coded Allergies: ibuprofen (Verified Allergy, Unknown, CHEST PAIN, 05/07/25) naproxen (Verified Allergy, Unknown, 05/07/25) ziprasidone (Verified Allergy, Unknown, 05/07/25) Scheduled Acetaminophen (Tylenol), 1 TABLET PO Q4HPRN, (Reported) Aripiprazole* (Abilify*), 1 TAB PO DAILY, (Reported) Ethynodiol D-Ethinyl Estradiol (Zovia 1-35E Tablet), 1 TAB PO DAILY, (Reported) Fluoxetine Hcl (Prozac), 1 CAP PO QAM, (Reported) Gabapentin (Gabapentin), 1 CAP PO HS, (Reported) Hydrocodone/Acetaminophen ([place] 5-325 Tablet), 1 TAB PO TID PRN Lorazepam (Ativan), 1 TAB PO Q8H Lorazepam* (Ativan*), 1 TAB PO Q12H, (Reported) Metformin Hcl* (Glucophage*), 1 TAB PO Q12H, (Reported) Nitrofurantoin Monohyd/M-Cryst (Macrobid 100 mg Capsule), 1 CAP PO Q12H Nitrofurantoin Monohyd/M-Cryst (Macrobid 100 mg Capsule), 1 CAP PO Q12H Nitrofurantoin Monohyd/M-Cryst (Macrobid 100 mg Capsule), 1 CAP PO Q12H Ondansetron Hcl (Zofran), 1 TAB PO Q6H, (Reported) Pantoprazole Sodium (PROTONIX tablet), 1 TAB PO DAILY Phenazopyridine HCl (Pyridium), 1 TAB PO Q8H Prazosin Hcl (Minipress), 1 CAP PO HS, (Reported) Propranolol Hcl* (Inderal*), 1 TAB PO BID, (Reported) Risperidone (Risperidone), 1 TAB PO HS, (Reported) Sulfamethoxazole/Trimethoprim (Septra Ds Tab), 1 TAB PO Q12H Venlafaxine HCl (Effexor Xr), 1 CAP PO BID, (Reported) Venlafaxine Hcl (Effexor Xr), 1 CAP PO DAILY, (Reported) Discontinued Medications Sulfamethoxazole/Trimethoprim (Bactrim Ds Tablet), 1 TAB PO Q12H Discontinued Reason: Auto Discontinued Past Medical History Past Medical History: No Pertinent History, Asthma, Chronic Pain, *PSYCH*, Anxiety, Depression, Psychosis, Schizophrenia Past Surgical History: other Alcohol Use: Rarely Drug Use: none Lives with: Mother Lives In: Home Occupation: student Review of Systems All Other Systems at this time: Reviewed and Negative Physical Exam Physical Exam Vital Signs: Temperature: 97.4, Source: Temporal, Heart Rate: 122, Respiratory Rate: 18, BP: 133/60, Pulse Oximetry: 96, Weight: 80.300 Oxygen Flow Rate: 0 Physical Exam General Appearance: Alert, WD/WN. NAD. HEENT: NCAT, PERRL, EOMI. Neck: Supple, trachea midline. Cardiovascular: RRR. No m/r/g. Lungs: CTAB. Breathing unlabored Extremities: Normal inspection. No edema. Skin: Warm/dry, normal color Neurological: Alert and oriented x4, normal gait. CN 2-12 INTACT. Psychiatric: Affect congruent with mood. When I walked by the patient's room several times while seeing other patients I never noticed any jerking of her body or what patient refers to as tremors however immediately upon walking into the room the patient's body started jerking her leg would jerk and then her left and right arm would jerk. She would then stopped jerking in for several sec she would be completely still. There is no grimacing of her face, no tongue moveme nts, and no lip smacking. Speech is normal. Progress Results/Orders Results/Orders Vital Signs 11/8/25 11:42 Temp 97.4 Pulse 122 Resp 18 B/P (MAP) 133/60 Pulse Ox 96 O2 Flow Rate 0 Medical Decision Making Additional information obtaine: N/A Findings nA Differential Diagnosis jerking motion of extremities: voluntary dyskinesia vs involuntary, tarditive dyskinesia, parkinsons, alcohol/drug withdrawal, rigors/sepsis. Symptoms are most consistent with voluntary dyskinesia given the fact that she seems to have very good control of her symptoms as the numerous times I walked by her room as she was waiting to be seen I did not notice any jerking in the moment I walked into her exam room she started jerking. Also the fact that she does not have any abnormal movements of her tongue, facial grimacing or other typical symptoms that we see with tardive dyskinesia. It is however possible given the fact that she was on an antipsychotic that she does have tardive dyskinesia from the antipsychotic and I recommended that she give it more time from being off of the Seroquel as it can take weeks to resolve. I also recommended that she follow up with her primary care provider for a referral to a neurologist for an outpatient workup. At this time there was no evidence of any emergent or urgent issue to address in the ER. Departure Time of Disposition: 14:18 Disposition: 01 HOME / SELF CARE / HOMELESS Impression: Primary Impression: Jerking movements of extremities Condition: Stable Discharge Instructions: General Discharge Instructions Additional Instructions: Your jerking could be from the seroquel which can take weeks to resolve after discontinuing the seroquel F/u with your psychiatrist re: the seroquel and jerking for alternative treatment options If jerking persists, I recommend your PCP send referral to neurologist for outpatient work up Referrals: NO PRIMARY CARE PROVIDER (PCP) Education Educated: Patient Educated regarding: diagnosis, treatment, need for follow up Signature Scribe Signature: x Attestation: SAMIR Harris May 07, 2025 14:19
[2025-05-07 14:42] VITALS: BP 134/85; PULSE 77; RESP 20; O2SAT 99
== END 2025-05-07 14:44 | disposition home or self-care (01) ==
LOC: ER 11:29
DX: R25.1 Tremor, unspecified (principal); G89.29 Other chronic pain; F32.A Depression, unspecified; F41.9 Anxiety disorder, unspecified; F20.9 Schizophrenia, unspecified; Z88.6 Allergy status to analgesic agent; Z88.8 Allergy status to other drugs, medicaments and biological substances; Z79.899 Other long term (current) drug therapy; Z79.84 Long term (current) use of oral hypoglycemic drugs
CPT/HCPCS: 99282

== ENCOUNTER 2025-05-08 18:06 | Emergency (ER) | payer MEDICAID ==
[~2025-05-08] VITALS: Ht 147.3 cm; Wt 77.7 kg
--- NOTE | 2025-05-08 18:21 | ELECTROCARDIOGRAPH REPORT ---
[facility] Test Date: 2025-05-08 Test Time: 18:20:33 Pat Name: MANUEL STEVENS Department: EMERGENCY ROOM Room: Gender: F Bale Opener: ROMINA : 1995 Requested By: KAITLIN YANES Order Number: [id number] Reading MD: Dr. DIANNA Spence Measurements Intervals [place] Rate: 153 P: 47 UT: 98 QRS: 81 QRSD: 73 T: -32 QT: 254 QTc: 406 Interpretive Statements Sinus tachycardia Borderline Q waves in inferior leads Nonspecific T abnormalities, anterior leads Baseline wander in lead(s) II,aVF Electronically Signed On 05-11-2025 19:22:[address] DIANNA Spence Please click the below link to view image of tracing.
--- NOTE | 2025-05-08 18:53 | Physician Documentation ---
History of Present Illness Chief Complaint: Flank Pain Stated Complaint: BLADDER PAIN Primary Medical Doctor: Cam Walsh [facility] HPI This is a 29-year-old female who presents suprapubic pain that she reports radiates to her legs. Medication Reconciliation Allergies: Coded Allergies: ibuprofen (Verified Allergy, Unknown, CHEST PAIN, 05/08/25) naproxen (Verified Allergy, Unknown, 05/08/25) ziprasidone (Verified Allergy, Unknown, 05/08/25) Scheduled Acetaminophen (Tylenol), 1 TABLET PO Q4HPRN, (Reported) Aripiprazole* (Abilify*), 1 TAB PO DAILY, (Reported) Cefpodoxime Proxetil (Vantin), 1 TAB PO Q12H Ethynodiol D-Ethinyl Estradiol (Zovia 1-35E Tablet), 1 TAB PO DAILY, (Reported) Fluoxetine Hcl (Prozac), 1 CAP PO QAM, (Reported) Gabapentin (Gabapentin), 1 CAP PO HS, (Reported) Hydrocodone/Acetaminophen (Danby 5-325 Tablet), 1 TAB PO TID PRN Lorazepam (Ativan), 1 TAB PO Q8H Lorazepam* (Ativan*), 1 TAB PO Q12H, (Reported) Metformin Hcl* (Glucophage*), 1 TAB PO Q12H, (Reported) Nitrofurantoin Monohyd/M-Cryst (Macrobid 100 mg Capsule), 1 CAP PO Q12H Nitrofurantoin Monohyd/M-Cryst (Macrobid 100 mg Capsule), 1 CAP PO Q12H Nitrofurantoin Monohyd/M-Cryst (Macrobid 100 mg Capsule), 1 CAP PO Q12H Ondansetron Hcl (Zofran), 1 TAB PO Q6H, (Reported) Pantoprazole Sodium (PROTONIX tablet), 1 TAB PO DAILY Phenazopyridine HCl (Pyridium), 1 TAB PO Q8H Prazosin Hcl (Minipress), 1 CAP PO HS, (Reported) Propranolol Hcl* (Inderal*), 1 TAB PO BID, (Reported) Risperidone (Risperidone), 1 TAB PO HS, (Reported) Sulfamethoxazole/Trimethoprim (Septra Ds Tab), 1 TAB PO Q12H Venlafaxine HCl (Effexor Xr), 1 CAP PO BID, (Reported) Venlafaxine Hcl (Effexor Xr), 1 CAP PO DAILY, (Reported) Past Medical History Past Medical History: No Pertinent History, Asthma, Chronic Pain, *PSYCH*, Anxiety, Depression, Psychosis, Schizophrenia Past Surgical History: other Alcohol Use: Rarely Drug Use: none Lives with: Mother Lives In: Home Occupation: student Review of Systems ROS As stated above in the HPI, otherwise all systems are reviewed and negative. Physical Exam Vital Signs: Temperature: 98.8, Source: Temporal, Heart Rate: 145, Respiratory Rate: 20, BP: 132/87, Pulse Oximetry: 98, Weight: 77.730 Oxygen Flow Rate: 0 Physical Exam VITALS: Reviewed and as above. GENERAL: Alert, nontoxic appearing, no apparent distress, tearful RESPIRATORY: No increased work of breathing, no respiratory distress, speaking in full clear sentences Progress Progress Note The patient was seen with the mid-level practitioner the patient has lower abdominal pain she has had now for proximally 18 hours the patient has a history of interstitial cystitis was seen at [facility] this morning and told that she might have a urinary tract infection but not started on antibiotics she states the pain has been persistent and severe 10/10 in the lower abdomen and hurts when she ambulates. The patient states this is worse than her typical pain. She states she has been feeling some chills recently no documented fevers. The patient does take Suboxone was given a dose of Suboxone at [facility] which was 4 mg she normally takes 2.5 mg the patient complains of nausea as well. VITALS: Reviewed and as above. GENERAL: Alert, no apparent distress. HEENT: Normocephalic, atraumatic, PERRL, EOMI, dry mucosa, no erythema RESPIRATORY: Lungs clear, normal breath sounds, no respiratory distress. CHEST: No accessory muscle use, no retractions CV: Regular rate, rhythm, no edema, no murmur, No: JVD GI: Soft, diffuse lower abdominal tenderness bowels sounds present, lower abdomen voluntary guarding no on voluntary guarding suprapubic site is clean without any evidence of infection BACK: No CVA tenderness, or swelling MUSCULOSKELETAL: No deformities, no edema SKIN: Warm and dry, no rash NEURO: Oriented x4, No motor or sensory deficit PSYCH: Normal mood and affect, no agitation Results/Orders Results/Orders Orders - MIKAEL BRINK CUFF STITCHER Urinalysis, Cult If Indicated (05/08/25 18:51) Hcg, Ur Ql (05/08/25 18:51) Cbc/Diff (05/08/25 18:51) Lipase (05/08/25 18:51) CMP (05/08/25 18:51) Vital Signs 05/08/25 18:14 Temp 98.8 Pulse 145 Resp 20 B/P (MAP) 132/87 Pulse Ox 98 O2 Flow Rate 0 EKG/XRAY/CT/US/VASC/MRI CT : Impression Patient: MANUEL STEVENS Medical Record: [id number] [facility] : 1995, Age: 29 Sex: Female Location: ER Patient Status: REG ER Service Date/Time: 05/08/252124 Ordering Physician: SAE LANCASTER MD Exam: CT ABDOMEN PELVIS Exam: CT CT ABDOMEN PELVIS History: ABD PAIN Comparison Study: None Technique: Multidetector spiral CT of the abdomen was performed from lung bases to pubic symphysis. Imaging was performed without IV contrast. Axial, coronal and sagittal multiplanar reformats were obtained from the axial data set by the technologist. Radiation Dose : 1. Abdomen/Pelvis: CTDIvol 27.35 mGy, DLP 1500.17 mGy*cm. Findings: Evaluation of solid organs is limited due to lack of intravenous contrast use. Lung Bases: No acute or significant lung base finding. Normal heart size. No pleural or pericardial effusion. Liver: The liver is normal in size. No focal lesions. Gallbladder and Biliary Tree: Unremarkable Spleen: Unremarkable Pancreas: The pancreas is grossly normal in appearance. Adrenal Glands: Unremarkable Kidneys: Kidneys are grossly normal without calculi or hydronephrosis. Bladder: Suprapubic catheter in-situ. Urinary bladder appears diffusely thickened. Surrounding edema. Bowel: The stomach is grossly normal in appearance. Small bowel and colon are normal in caliber and distribution. The appendix is not visualized; however, no secondary findings of acute appendicitis identified. Ascites: Absent Lymphadenopathy: No mesenteric, retroperitoneal or periportal lymphadenopathy. Abdominal Wall and Mesentery: Unremarkable. Vasculature: The visualized abdominal aorta is normal in size and caliber. Evaluation of abdominal and pelvic vessels is limited due to lack of intravenous contrast. Pelvic Organs: Unremarkable Musculoskeletal: No aggressive focal bony lesions, acute fractures or dislocation. IMPRESSION: Suprapubic catheter in-situ. Urinary bladder appears thickened with mild surrounding edema. Please correlate with any symptoms of cystitis. Otherwise no acute abnormality. Radiation optimization: All CT scans at this facility use at least one of these dose optimization techniques: automated exposure control mA and/or kV adjustment per patient size (includes targeted exams where dose is matched to clinical indication) or iterative reconstruction. Electronically Signed by:EDMOND SHELDON MD Date & Time: 05/08/252308 Dictated by: EDMOND SHELDON MD Dictation date and time: 05/08/252308 Primary Care Provider: NO PRIMARY CARE PROVIDER cc: SAE LANCASTER MD ~ Medical Decision Making Additional information obtaine: N/A Findings MSE performed in triage and patient returned to ED lobby by nursing staff to await available ED room Differential Dx:Considerations: AAA, -Complete, -Incomplete, -Inevitable, -Missed, -Threatened, Abruptio placentae, Angina/AZ, Appendicitis, Bowel obstruction, Cholelithasis, Constipation, Gastritis/PUD, Gastroenteritis, GI hemorrhage, Inflammatory BD, Ischemic bowel, Ovarian cyst/torsion, Pancreatitis, PID, Porphyria, Urinary obstruction, Urinary tract infection, Urolithiasis Departure Time of Disposition: 00:27 Disposition: 01 HOME / SELF CARE / HOMELESS Impression: Primary Impression: Acute urinary tract infection Additional Impression: Abdominal pain Qualified Codes: R10.24 - Suprapubic pain Discharge Instructions: Urinary Tract Infection, Adult Referrals: NO PRIMARY CARE PROVIDER (PCP) Prescriptions Cefpodoxime Proxetil (Vantin) 200 Mg Tablet 1 TAB PO Q12H for 7 Days, #14 TAB Prov: SAE LANCASTER MD 05/09/25 Signature Scribe Signature: No scribe Attestation: The note accurately reflects work and decisions made by me.CÉSAR Lynn 05/09/25 01:19 MIKAEL BRINK May 08, 2025 18:53 SAE LANCASTER MD May 08, 2025 21:33
[2025-05-08 19:30] LABS: MEAN PLATELET VOLUME 7.5 FL (7.4-10.4); RED CELL DISTRIBUTION WIDTH 16.0 % (11.5-14.5)
[2025-05-08 19:49] LABS: CREATININE 0.83 MG/DL (0.40-0.90); TOTAL CARBON DIOXIDE 28.2 MMOL/L (24-32); eCRCL 65 ML/MIN; eGFR 82 ML/MIN
[2025-05-08] MEDS: normal saline 1000ML IV soln IVB ONE (22:46)
[2025-05-08] MEDS: phenazopyridine 100mg tablet PO ONE (22:47)
[2025-05-08] MEDS: acetaminophen 1,000mg/100ml IV 100 ML IV ONE (22:47)
[2025-05-08] MEDS: metoclopramide 5 mg/ml inj IV ONE (22:48)
[2025-05-08] MEDS: ketorolac trometh 15mg/ml vial 15 MG/ML ML IV ONE (22:49)
--- NOTE | 2025-05-08 23:12 | RADIOLOGY REPORT ---
Exam: CT CT ABDOMEN PELVIS History: ABD PAIN Comparison Study: None Technique: Multidetector spiral CT of the abdomen was performed from lung bases to pubic symphysis. Imaging was performed without IV contrast. Axial, coronal and sagittal multiplanar reformats were obtained from the axial data set by the technologist. Radiation Dose : 1. Abdomen/Pelvis: CTDIvol 27.35 mGy, DLP 1500.17 mGy*cm. Findings: Evaluation of solid organs is limited due to lack of intravenous contrast use. Lung Bases: No acute or significant lung base finding. Normal heart size. No pleural or pericardial effusion. Liver: The liver is normal in size. No focal lesions. Gallbladder and Biliary Tree: Unremarkable Spleen: Unremarkable Pancreas: The pancreas is grossly normal in appearance. Adrenal Glands: Unremarkable Kidneys: Kidneys are grossly normal without calculi or hydronephrosis. Bladder: Suprapubic catheter in-situ. Urinary bladder appears diffusely thickened. Surrounding edema. Bowel: The stomach is grossly normal in appearance. Small bowel and colon are normal in caliber and distribution. The appendix is not visualized; however, no secondary findings of acute appendicitis identified. Ascites: Absent Lymphadenopathy: No mesenteric, retroperitoneal or periportal lymphadenopathy. Abdominal Wall and Mesentery: Unremarkable. Vasculature: The visualized abdominal aorta is normal in size and caliber. Evaluation of abdominal and pelvic vessels is limited due to lack of intravenous contrast. Pelvic Organs: Unremarkable Musculoskeletal: No aggressive focal bony lesions, acute fractures or dislocation. IMPRESSION: Suprapubic catheter in-situ. Urinary bladder appears thickened with mild surrounding edema. Please correlate with any symptoms of cystitis. Otherwise no acute abnormality. Radiation optimization: All CT scans at this facility use at least one of these dose optimization techniques: automated exposure control mA and/or kV adjustment per patient size (includes targeted exams where dose is matched to clinical indication) or iterative reconstruction.
[2025-05-08] MEDS: CefTRIAXone 2gm/D5W 50ml BAG 50 ML IV ONE (23:34)
[2025-05-08 23:52] LABS: UA COLLECTION TYPE NON-SPECIFIED
[2025-05-09] LABS: URINE HCG NEGATIVE (NEG)
[2025-05-09 00:04] LABS: SQUAMOUS EPITHELIAL CELL,UR MODERATE /LPF (FEW)
[2025-05-09 00:05] LABS: CAL OXALATE CRYSTALS FEW /HPF (NEGATIVE)
[2025-05-09] MEDS ORDERED: CEFP200T13 PO (00:26)
[2025-05-09 00:30] VITALS: BP 98/57; PULSE 125; RESP 16; O2SAT 95
[2025-05-09 01:17] VITALS: TEMP 98.8
== END 2025-05-09 01:00 | disposition home or self-care (01) ==
LOC: ER 18:06
DX: N39.0 Urinary tract infection, site not specified (principal); R10.24 Suprapubic pain; F41.9 Anxiety disorder, unspecified; F32.A Depression, unspecified; F20.9 Schizophrenia, unspecified; G89.29 Other chronic pain; Z88.8 Allergy status to other drugs, medicaments and biological substances; Z88.6 Allergy status to analgesic agent; Z88.5 Allergy status to narcotic agent; Z79.899 Other long term (current) drug therapy
CPT/HCPCS: 36415; 74176; 80053; 81001; 81025; 83690; 84145; 85025; 87077; 87088; 87186; 93005; 96361; 96365; 96375; 99285; J0131; J0696; J1200; J1885; J2765; J7030

== ENCOUNTER 2025-05-18 21:19 | Emergency (ER) | payer MEDICAID ==
[~2025-05-18] VITALS: Ht 147.3 cm; Wt 81.5 kg
--- NOTE | 2025-05-18 23:11 | Physician Documentation ---
History of Present Illness ~ Chief Complaint: Eye Pain Stated Complaint: L EYE PAIN Time Seen by MD: 22:51 [facility] HPI Patient presents to the emergency room for evaluation of left eye pain that has over this past week. She was seen at [facility] for this compla int. 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 She took some Tylenol at 2:00 p.m. she is on Suboxone. This is patient's 6th visit this month at our hospital Medication Reconciliation Allergies: Coded Allergies: ibuprofen (Verified Allergy, Unknown, CHEST PAIN, 05/18/25) naproxen (Verified Allergy, Unknown, 05/18/25) ziprasidone (Verified Allergy, Unknown, 05/18/25) Scheduled Acetaminophen (Tylenol), 1 TABLET PO Q4HPRN, (Reported) Aripiprazole* (Abilify*), 1 TAB PO DAILY, (Reported) Ethynodiol D-Ethinyl Estradiol (Zovia 1-35E Tablet), 1 TAB PO DAILY, (Reported) Fluoxetine Hcl (Prozac), 1 CAP PO QAM, (Reported) Gabapentin (Gabapentin), 1 CAP PO HS, (Reported) Hydrocodone/Acetaminophen (Warren 5-325 Tablet), 1 TAB PO TID PRN Lorazepam (Ativan), 1 TAB PO Q8H Lorazepam* (Ativan*), 1 TAB PO Q12H, (Reported) Metformin Hcl* (Glucophage*), 1 TAB PO Q12H, (Reported) Nitrofurantoin Monohyd/M-Cryst (Macrobid 100 mg Capsule), 1 CAP PO Q12H Nitrofurantoin Monohyd/M-Cryst (Macrobid 100 mg Capsule), 1 CAP PO Q12H Nitrofurantoin Monohyd/M-Cryst (Macrobid 100 mg Capsule), 1 CAP PO Q12H Ondansetron Hcl (Zofran), 1 TAB PO Q6H, (Reported) Pantoprazole Sodium (PROTONIX tablet), 1 TAB PO DAILY Phenazopyridine HCl (Pyridium), 1 TAB PO Q8H Prazosin Hcl (Minipress), 1 CAP PO HS, (Reported) Propranolol Hcl* (Inderal*), 1 TAB PO BID, (Reported) Risperidone (Risperidone), 1 TAB PO HS, (Reported) Sulfamethoxazole/Trimethoprim (Septra Ds Tab), 1 TAB PO Q12H Venlafaxine HCl (Effexor Xr), 1 CAP PO BID, (Reported) Venlafaxine Hcl (Effexor Xr), 1 CAP PO DAILY, (Reported) Discontinued Medications Cefpodoxime Proxetil (Vantin), 1 TAB PO Q12H Discontinued Reason: Auto Discontinued Past Medical History Past Medical History: No Pertinent History, Asthma, Chronic Pain, *PSYCH*, Anxiety, Depression, Psychosis, Schizophrenia Past Surgical History: other Last Menstrual Period: May 18, 2025 Alcohol Use: Rarely Drug Use: none Lives with: Mother Lives In: Home Occupation: student Review of Systems ROS All review of systems negative except as per HPI Physical Exam Vital Signs: Temperature: 97.2, Source: Temporal, Heart Rate: 106, Respiratory Rate: 19, BP: 131/81, Pulse Oximetry: 97, Weight: 81.500 Physical Exam General: Patient is awake, alert, oriented x4 in no acute distress and well appearing.~ Head: Normocephalic and atraumatic. Eyes: Conjunctival normal. EOMI. PERRL. H test negative. Pressures on the right 19, pressures in the left 17 ENT: Mucous membranes moist. Neck: Supple, trachea is midline. Chest: Clear to auscultation bilaterally without rales, rhonchi, or wheezes. There is no accessory muscle use or retractions. Cardiac: RRR without murmurs, gallops, or rubs. Progress Results/Orders Results/Orders Orders - TERRANCE FAUSTIN MD Normal Saline 1000ml (0.9% Sodium Chlori (05/18/25 23:05) Completed Orders - TERRANCE FAUSTIN MD Acetaminophen 1,000mg/100ml Iv (Ofirmev (05/18/25 23:05) Metoclopramide Inj (Reglan Inj) (05/18/25 23:05) Diphenhydramine Inj (Benadryl Inj.) (05/18/25 23:05) Aspirin 325mg Tablet (Aspirin 325mg Tabl (05/18/25 23:05) Medications Received in ER Medications (Trade) Dose Ordered Sig/Machelle Route PRN Reason Start Time Stop Time Status Last Admin Dose Admin (aspirin 325mg tablet) 2 tab ONCE ONCE PO 05/18/25 23:05 05/18/25 23:13 DC 05/18/25 23:21 2 TAB Vital Signs 05/18/25 05/18/25 21:27 22:41 Temp 97.2 Pulse 106 Resp 14 19 B/P (MAP) 131/81 Pulse Ox 97 Medical Decision Making Additional information obtaine: old records Findings Patient presents to the emergency room with report of ocular migraine. History of same. Exam is reassuring. Ear Diff. Dx: Considerations: Include: Abrasion, Cerumen impaction, Foreign body, Otitis externa, Barotrauma, Otitis media, Perforation, Referred pain- dental, Referred pain-pharyngitis, Referred pain-sinusitis, Referred pain-TMJ syn., Tympanic Membrane Injury, Other Eye Diff. Dx: Considerations: Include: Chalazoin, Conjuctivits-allergic, Conjuctivitis-bacterial, Conjuctivits-chlamydial, Conjuctivitis-viral, Corneal abrasion, Corneal laceration, Corneal ulceration, Foreign body-conjuctiva, Foreign body-corneal, Foreign body-intraocular, Foreign body-lid, Glaucoma, Globe rupture, Hordeolum, Iritis, Orbital cellulitis, Periobital cellulitis, Retinal artery occulsion, Retinal vein occlusion, Rust ring, Subconjunctival hem, Ultraviolet keratitis, Uveitis, Vitreous hemorrhage, Other Nose Diff. Dx: Considerations: Include: Abrasion, Anterior nasal bleed, Avulsion, Contusion, Coagulopathy, Fracture-nasal bone, Fracture-septum, Hypertension, Laceration, Other, Posterior nasal bleed, Retained foreign body, Septal hematoma Tooth Diff. Dx: Considerations: Include: Alveolar fracture, Aveolar osteitis, ANUG, Facial cellulitis, Periapical abscess, Periodontal abscess, Post- extraction bleeding, Pulpitis, Trigeminal neuralgia, Tooth-avulsion, Tooth- eruption, Tooth-fracture, Tooth-subluxation, Other Throat Diff Dx: Considerations: Include: AIDS, Epiglottitis, Esophageal candidiasis, Hand foot mouth disease, Herpangina, Herpetic stomatitis, Herpes simplex, Infection mononucleosis, Immunodeficiency, Real's angina, Peritonsillar abscess, Peritonsillar cellulitis, Pharyngitis-diphtheria, Pharyngitis-strepococcal, Pharyngitis-viral, Thrush, URI, Other Departure Disposition: HOME / SELF CARE / HOMELESS Impression: Primary Impression: Ocular migraine Condition: Stable Discharge Instructions: Migraine Headache, Kili-er-Ucep Additional Instructions: Follow up with your doctor for any additional referrals. Referrals: NO PRIMARY CARE PROVIDER (PCP) Signature Scribe Signature: No scribe Attestation: The note accurately reflects work and decisions made by me.Terrance Faustin MD 05/18/25 23:40 TERRANCE FAUSTIN MD May 18, 2025 23:11
[2025-05-19] MEDS: metoclopramide 5 mg/ml inj IV ONE (00:25)
[2025-05-19] MEDS: acetaminophen 1,000mg/100ml IV 100 ML IV ONE (00:27)
[2025-05-19] MEDS: normal saline 1000ml 1,000 ML IV ONE (00:29)
[2025-05-19 01:31] VITALS: BP 106/58; PULSE 96; RESP 15; TEMP 97.2; O2SAT 96
== END 2025-05-19 01:34 | disposition home or self-care (01) ==
LOC: ER 21:20
DX: H57.12 Ocular pain, left eye (principal); G43.909 Migraine, unspecified, not intractable, without status migrainosus; Z88.6 Allergy status to analgesic agent; Z88.8 Allergy status to other drugs, medicaments and biological substances
CPT/HCPCS: 96361; 96374; 96375; 99285; J0131; J1200; J2765; J7030

== ENCOUNTER 2025-05-30 11:02 | Emergency (ER) | payer MEDICAID ==
[~2025-05-30] VITALS: Ht 147.3 cm; Wt 82.6 kg
[2025-05-30 11:46] LABS: MEAN PLATELET VOLUME 6.9 FL (7.4-10.4); RED CELL DISTRIBUTION WIDTH 15.5 % (11.5-14.5)
[2025-05-30 11:56] LABS: CREATININE 0.95 MG/DL (0.40-0.90); TOTAL CARBON DIOXIDE 30.8 MMOL/L (24-32); eCRCL 57 ML/MIN; eGFR 70 ML/MIN
[2025-05-30 12:06] LABS: URINE HCG NEGATIVE (NEG)
[2025-05-30 12:10] LABS: LEUKOCYTE ESTERASE ,URINE MODERATE (Neg); OCCULT BLOOD,URINE NEGATIVE (Neg)
[2025-05-30 12:18] LABS: UA COLLECTION TYPE CLN CATCH MIDSTREAM
[2025-05-30 12:22] LABS: NITRITES, URINE POSITIVE (Neg)
[2025-05-30 12:23] LABS: CAL OXALATE CRYSTALS FEW /HPF (NEGATIVE); SQUAMOUS EPITHELIAL CELL,UR MODERATE /LPF (FEW)
[2025-05-30 12:24] LABS: YEAST MANY /HPF (NEGATIVE)
--- NOTE | 2025-05-30 12:51 | Physician Documentation ---
History of Present Illness General Chief Complaint: Abdominal Pain Stated Complaint: SEE CHEIF COMPLAINT Time Seen by MD: 12:36 Primary Medical Doctor: Cam Walsh [facility] Source: patient Mode of Arrival: POV History of Present Illness Initial Comments 29 F with PMH kidney stones, PCOS, recurrent UTI's s/p suprapubic catheter placement, nephrostomy tubes s/p removal in October, presenting with 1 week of worsening RUQ & generalized joint pain. She states that the joint pain is in her shoulders, elbows, knees and hands and makes her hands feel "tight". She has had associated vertigo with positional changes, "brain fog", and nausea. She has also noticed a spotty red rash on her face during this time. She denies vomiting, syncope, ear pain, or headache. Her RUQ pain is worse with meals as well as with inspiration. Medication Reconciliation Allergies: Coded Allergies: ibuprofen (Verified Allergy, Unknown, CHEST PAIN, 05/30/25) naproxen (Verified Allergy, Unknown, 05/30/25) ziprasidone (Verified Allergy, Unknown, 05/30/25) Scheduled Acetaminophen (Tylenol), 1 TABLET PO Q4HPRN, (Reported) Aripiprazole* (Abilify*), 1 TAB PO DAILY, (Reported) Cefpodoxime Proxetil (Vantin), 1 TAB PO Q12H Ethynodiol D-Ethinyl Estradiol ([place] 1-35E Tablet), 1 TAB PO DAILY, (Reported) Fluoxetine Hcl (Prozac), 1 CAP PO QAM, (Reported) Gabapentin (Gabapentin), 1 CAP PO HS, (Reported) Hydrocodone/Acetaminophen ([place] 5-325 Tablet), 1 TAB PO TID PRN Lorazepam (Ativan), 1 TAB PO Q8H Lorazepam* (Ativan*), 1 TAB PO Q12H, (Reported) Metformin Hcl* (Glucophage*), 1 TAB PO Q12H, (Reported) Nitrofurantoin Monohyd/M-Cryst (Macrobid 100 mg Capsule), 1 CAP PO Q12H Nitrofurantoin Monohyd/M-Cryst (Macrobid 100 mg Capsule), 1 CAP PO Q12H Nitrofurantoin Monohyd/M-Cryst (Macrobid 100 mg Capsule), 1 CAP PO Q12H Ondansetron Hcl (Zofran), 1 TAB PO Q6H, (Reported) Pantoprazole Sodium (PROTONIX tablet), 1 TAB PO DAILY Phenazopyridine HCl (Pyridium), 1 TAB PO Q8H Prazosin Hcl (Minipress), 1 CAP PO HS, (Reported) Propranolol Hcl* (Inderal*), 1 TAB PO BID, (Reported) Risperidone (Risperidone), 1 TAB PO HS, (Reported) Sulfamethoxazole/Trimethoprim (Septra Ds Tab), 1 TAB PO Q12H Venlafaxine HCl (Effexor Xr), 1 CAP PO BID, (Reported) Venlafaxine Hcl (Effexor Xr), 1 CAP PO DAILY, (Reported) Past Medical History Past Medical History: No Pertinent History, Asthma, Kidney Stones, UTI (recurrent), Chronic Pain (s/p nerve stimulator implant in back), *PSYCH*, Anxiety, Depression, Psychosis, Schizophrenia Other Past Medical History: IBS, PCOS Past Surgical History: other (suprapubic catheter, nephrostomy tube placement & removal, nerve stimulator implant in back) Smoking: Non-Smoker Alcohol Use: Rarely Drug Use: none Lives with: Mother Lives In: Home Occupation: student Review of Systems All Other Systems at this time: Reviewed and Negative Physical Exam Physical Exam Vital Signs: Temperature: 98.9, Source: Temporal, Heart Rate: 104, Respiratory Rate: 12, BP: 116/89, Pulse Oximetry: 98, Weight: 82.600 Oxygen Flow Rate: 0 Physical Exam VITALS: Reviewed and as above. GENERAL: Alert, obese woman in no apparent distress. HEENT: Normocephalic, atraumatic, PERRL, EOMI, dry mucosa, no erythema RESPIRATORY: Lungs clear, normal breath sounds, no respiratory distress. CHEST: No accessory muscle use, no retractions CV: Regular rate, rhythm, no edema, no murmur, No: JVD GI: Bowels sounds present. Involuntary guarding of RUQ with tenderness to light palpation. Suprapubic tenderness to palpation. BACK: No CVA tenderness, or swelling MUSCULOSKELETAL No deformities, no edema SKIN: Warm and dry. Patchy, erythematous rash approx 2cm below the lip. Suprapubic catheter within skin fold is intact, mildly erythematous, and appears mildly moist. Well-healed self-harm scars on wrists. NEURO: Oriented x4, No motor or sensory deficit PSYCH: Normal mood and affect, no agitation Progress Results/Orders Results/Orders Orders - SAE LANCASTER MD Straight Cath For Urine Sample (05/30/25 11:23) Cult Urine + [place] [address] (05/30/25 12:24) Normal Saline 1000ml (0.9% Sodium Chlori (05/30/25 13:05) Ultrasound Of Abdomen (05/30/25 13:09) Completed Orders - SAE LANCASTER MD Hcg, Ur Ql (05/30/25 11:23) Cbc/Diff (05/30/25 11:23) Lipase (05/30/25 11:23) CMP (05/30/25 11:23) Ua W/Microscopic, Cult If Ind (05/30/25 12:01) Ceftriaxone 2gm/D5w 50ml Bag (Rocephin 2 (05/30/25 13:05) Ondansetron Inj. (Zofran 4mg/2ml Vial) (05/30/25 13:05) Ketorolac Trometh 15mg/Ml Vial (Toradol (05/30/25 13:10) Ultrasound Of Abdomen (05/30/25 13:09) Ceftriaxone Im Kit W/Lidocaine (Rocephin (05/30/25 14:20) Ketorolac Trometh 15mg/Ml Vial (Toradol (05/30/25 14:20) Vital Signs 05/30/25 05/30/25 05/30/25 05/30/25 11:17 13:02 14:03 14:33 Temp 98.9 Pulse 104 98 Resp 12 16 16 16 B/P (MAP) 116/89 112/88 (96) Pulse Ox 98 98 O2 Flow Rate 0 0 05/30/25 14:39 Temp 98.9 Pulse 84 Resp 16 B/P (MAP) 104/61 Pulse Ox 99 Laboratory Tests Test 05/30/25 11:35 05/30/25 12:01 White Blood Count 6.2 Red Blood Count 4.46 Hemoglobin 12.3 Hematocrit 37.2 Mean Corpuscular Volume 83.2 Mean Corpuscular Hemoglobin 27.6 Mean Corpuscular Hemoglobin Concent 33.1 Red Cell Distribution Width 15.5 H Platelet Count 290 Mean Platelet Volume 6.9 L Neutrophils (%) (Auto) 43.1 Lymphocytes (%) (Auto) 45.7 Monocytes (%) (Auto) 8.6 Eosinophils (%) (Auto) 1.9 Basophils (%) (Auto) 0.7 Neutrophils # (Auto) 2.7 Lymphocytes # (Auto) 2.8 Monocytes # (Auto) 0.5 Eosinophils # (Auto) 0.1 Basophils # (Auto) 0.0 CBC Comment Sodium Level 141 Potassium Level 4.3 Chloride Level 105 Carbon Dioxide Level 30.8 Anion Gap 5 L Blood Urea Nitrogen 6 L Creatinine 0.95 H Estimated GFR/1.73 m2 70 BUN/Creatinine Ratio 6.3 L Glucose Level 113 H Calcium Level 8.4 L Total Bilirubin 0.6 Aspartate Amino Transf (AST/SGOT) 15 Alanine Aminotransferase (ALT/SGPT) 16 Alkaline Phosphatase 76 Total Protein 7.1 Albumin 3.4 Globulin 3.7 Albumin/Globulin Ratio 0.9 L Lipase 17 Chemistry Comments Urine Specimen Description Cln catch midstream Urine Color Yellow Urine Clarity Cloudy Urine pH 6.5 Urine Specific [place] 1.020 Urine Protein Negative Urine Glucose (UA) Negative Urine Ketones Negative Urine Occult Blood Negative Urine Nitrite Positive Urine Bilirubin Negative Urine Urobilinogen 1.0 Urine Leukocyte Esterase Moderate H Urine RBC 0-2 Urine WBC 20-30 H Urine Squamous Epithelial Cells Moderate Urine Transitional Epithelial Cells Few Urine Calcium Oxalate Crystals Few Urine Bacteria 3+ Urine Yeast Many Urine Culture Indicated Indicated Volume Urine Centrifuged 10 ml Urine HCG, Qualitative Negative Urine Comment Microbiology Date/Time Source Procedure Growth Status 05/30/25 12:24 Urine Clean Catch Midstream Urine Culture - Preliminary MIXED LATASHA ISOLATED.... Resulted Medical Decision Making Additional information obtaine: old records Findings The patient is a 29-year-old female with a history of chronic abdominal pain patient is complaining of abdominal pain again she has a unremarkable ultrasound her labs were unremarkable she does appear to have a urinary tract infection she will be treated for a urinary tract infection previous hospitalizations has been reviewed labs were reviewed the patient's pulse oximetry was interpreted as normal the patient will be discharged. Differential Diagnosis Urinary tract infection, gastritis, colitis, biliary tract disease. Departure Time of Disposition: 14:17 Disposition: 01 HOME / SELF CARE / HOMELESS Impression: Primary Impression: Acute urinary tract infection Discharge Instructions: Urinary Tract Infection, Adult Referrals: NO PRIMARY CARE PROVIDER (PCP) Prescriptions Cefpodoxime Proxetil (Vantin) 200 Mg Tablet 1 TAB PO Q12H for 7 Days, #14 TAB Prov: SAE LANCASTER MD 05/30/25 Signature Scribe Signature: No scribe Attestation: The note accurately reflects work and decisions made by me.Sae Lancaster MD 05/31/25 14:19 SAE LANCASTER MD May 30, 2025 12:51
[2025-05-30] MEDS: CefTRIAXone 2gm/D5W 50ml BAG 50 ML IV ONE (13:05)
[2025-05-30] MEDS: ondansetron/PF 4mg/2ml inj IV ONE (13:05)
[2025-05-30] MEDS: normal saline 1000ML IV soln IVB ONE (13:05)
[2025-05-30] MEDS: ketorolac trometh 15mg/ml vial 15 MG/ML ML IV ONE (13:10)
[2025-05-30] MEDS ORDERED: CEFP200T13 PO (14:18)
[2025-05-30] MEDS: ketorolac trometh 15mg/ml vial 15 MG/ML ML IM ONE (14:33)
--- NOTE | 2025-05-30 14:33 | RADIOLOGY REPORT ---
INDICATION: right upper abdominal pain TECHNIQUE: Multiple real-time sonographic images of the abdomen were obtained with attention of the right upper quadrant. COMPARISON: CT CT ABDOMEN PELVIS on DOS: 05/08/25, DI ABDOMEN,SINGLE VIEW(KUB) on DOS: 04/23/25 FINDINGS: The gallbladder is normal in size. No gallbladder wall thickening (gallbladder wall measures 0.21 cm. No gallstones or gallbladder sludge. The CBD measures 3.4 mm in diameter, which is normal. Negative sonographic Roblero's sign IMPRESSION: Normal sonographic appearance of the gallbladder and common bile duct
[2025-05-30] MEDS: CefTRIAXone 1000mg IM Kit (w/lidocaine diluent) IM ONE (14:35)
[2025-05-30 14:39] VITALS: BP 104/61; PULSE 84; RESP 16; TEMP 98.9; O2SAT 99
== END 2025-05-30 14:44 | disposition home or self-care (01) ==
LOC: ER 11:03
DX: N39.0 Urinary tract infection, site not specified (principal); G89.29 Other chronic pain; Z88.6 Allergy status to analgesic agent; Z88.8 Allergy status to other drugs, medicaments and biological substances; Z87.442 Personal history of urinary calculi; Z87.440 Personal history of urinary (tract) infections; Z79.899 Other long term (current) drug therapy; Z79.84 Long term (current) use of oral hypoglycemic drugs
CPT/HCPCS: 36415; 76700; 80053; 81001; 81025; 83690; 85025; 87088; 96372; 99285; J0696; J1885; J7030